=== PATIENT | female | born 1955 | race African-American/Black ===

== ENCOUNTER 2023-08-25 11:53 | Outpatient (AMB) | payer MEDICARE, MEDICAID, SELFPAY ==
--- NOTE | 2023-08-25 11:58 | HO.NEPHOV ---
HPI HPI Comments History of Present Illness Details 67 yr old woman with HTN Here for follow up No new issues PFSH Medical History (Updated 08/25/23 @ 12:14 by Tushar Tripathi MD) Rheumatoid aortitis High cholesterol Social History (Updated 08/25/23 @ 12:04 by Kimmie Cheney MA) Household Members: Children Alcohol intake: never Patient Tobacco Use Status: Never used Tobacco Vital Signs 08/25/23 11:59 Height 5 ft 4.3 in Weight 196 lb BMI 33.3 BP 138/98 H Blood Pressure Location Lt brachial Position Sitting Pulse 65 Pulse Source Pulse Oximeter Pulse Oximetry (%) 97 Oxygen Delivery Method Room Air Physical Exam Vital Signs: Last Vital Signs Pulse 65 08/25/23 11:59 BP 138/98 H 08/25/23 11:59 Pulse Ox 97 08/25/23 11:59 Oxygen Delivery Method Room Air 08/25/23 11:59 BMI result Body Mass Index 33.3 Const General: comfortable Nutritional Appearance: well nourished Orientation/consciousness: patient oriented x3 HEENT Head: No normal to inspection Mouth: moist mucous membranes Neck Neck: Yes supple and Yes no JVD Resp Auscultation: clear to auscultation bilaterally, no rales and rub present Cardio Jugular venous distension: no JVD Palpation: no palpable S3 and no palpable S4 Heart sounds: no rubs GI Palpation (GI): Soft to palpation and nontender Percussion: No Fluid wave present General: Yes no CVA tenderness Back/Spine/Pelvis Back: no CVA tenderness Skin General skin exam: no rashes or lesions noted Neuro General: patient oriented x3 Extrem General: Yes no pedal edema and No clubbing Assessment & Plan Assessment & Plan (1) HTN (hypertension): Code(s): I10 - Essential (primary) hypertension Plan BP well controlled Tolerating HCTZ Will follow Cr and K Discussed low salt diet and weight loss NO changes were made Orders: Orders Electrolytes 6 Months I10 - Essential (primary) hypertension Blood Urea Nitrogen 6 Months I10 - Essential (primary) hypertension Calcium 6 Months I10 - Essential (primary) hypertension Creatinine 6 Months I10 - Essential (primary) hypertension Coding Level of Care Code Est Pt Level 3 (59370) Diagnoses HTN (hypertension) I10 Results Reviewed Nephrology Results: No Data to Display
[2023-08-25 11:59] VITALS: BP 138/98; PULSE 65; O2SAT 97; BMI 33.3
== END 2023-08-25 12:15 | disposition home or self-care (01) ==
PROVIDERS: PCP Nurse Practitioner; Visit Provider Internal Medicine Hypertension Specialist
DX: I10 Essential (primary) hypertension (principal)
CPT/HCPCS: 99213

== ENCOUNTER → 2023-08-25 11:53 | Outpatient (BNVA) | payer MEDICARE, MEDICAID, SELFPAY | PROVIDERS: PCP Nurse Practitioner; Visit Provider Internal Medicine Hypertension Specialist | DX: I10 Essential (primary) hypertension (principal) | CPT/HCPCS: 99212 ==

== ENCOUNTER 2024-02-22 15:42 | Outpatient (REF) | payer MEDICARE, MEDICAID, SELFPAY ==
[2024-02-22 18:01] LABS: Anion Gap 13 (12-20); Blood Urea Nitrogen 24 mg/dL (9-16); Calcium 9.4 mg/dL (8.4-10.2); Carbon Dioxide 26 mmol/L (22-29); Chloride 105 mmol/L (96-108); Estimated Glomerular Filt Rate 34; Potassium 3.7 mmol/L (3.3-5.1); Sodium 140 mmol/L (135-145)
== END 2024-02-22 15:43 | disposition home or self-care (01) ==
LOC: HO.HKASLDS 15:42
PROVIDERS: Visit Provider Internal Medicine Hypertension Specialist
DX: I10 Essential (primary) hypertension (principal)
CPT/HCPCS: 36415; 80051; 82310; 82565; 84520

== ENCOUNTER 2024-02-23 11:38 | Outpatient (AMB) | payer MEDICARE, MEDICAID, SELFPAY ==
[2024-02-23 11:37] VITALS: BP 162/98; PULSE 62; O2SAT 98; BMI 31.1
--- NOTE | 2024-02-23 11:37 | HO.NEPHOV_ITS ---
Vital Signs 02/23/24 11:37 Height 5 ft 4.3 in Weight 183 lb BMI 31.1 BP 162/98 H Blood Pressure Location Rt brachial Position Sitting Pulse 62 Pulse Source Pulse Oximeter Pulse Oximetry (%) 98 Oxygen Delivery Method Room Air Intake Visit Reasons: 6 Months/ LVM Microsoft Access Developer Required: No Accompanied by: Self / Same As Patient Allergies ibuprofen Allergy (Mild, Verified 02/23/24 11:39) high blood pressure losartan Adverse Reaction (Mild, Verified 02/23/24 11:49) Muscle Pain lisinopril Adverse Reaction (Unknown, Unverified 02/23/24 11:56) Unknown Aspirin Allergy (Mild, Uncoded 08/25/23 12:02) Hives Medication List - Last Reconciled 02/23/24 by Tushar Tripathi MD hydrochlorothiazide 25 mg PO DAILY pravastatin 20 mg PO DAILY HPI Comments Details: 67 yr old woman with HTN Here for follow up She is taking HCTX 25 mg half a tab Reportedly home BP is around 139 mmHG systolic [facility] Medical History (Updated 08/25/23 @ 12:14 by Tushar Tripathi MD) Rheumatoid aortitis High cholesterol Social History Household Members: Children Alcohol intake: never Patient Tobacco Use Status: Never used Tobacco Physical Exam Vital Signs: Last Vital Signs Pulse 62 02/23/24 11:37 BP 162/98 H 02/23/24 11:37 Pulse Ox 98 02/23/24 11:37 Oxygen Delivery Method Room Air 02/23/24 11:37 BMI result Body Mass Index 31.1 Const General: comfortable; No acute distress Orientation/consciousness: patient oriented x3 Eyes General: appearance normal, both eyes and all related structures Visual Allan: normal visual allan by confrontation Neck Neck: Yes supple and Yes no JVD Resp Effort & Inspection: normal respiratory effort and respiratory effort not decreased Auscultation: rhonchi Cardio Palpation: no palpable S3 and no palpable S4 Heart sounds: no rubs GI Inspection: Yes normal to inspection Palpation (GI): Soft to palpation Percussion: Yes normal to percussion Auscultation: normal bowel sounds General: Yes no CVA tenderness Back/Spine/Pelvis Back: no CVA tenderness Skin General skin exam: no petechiae and no purpura Neuro General: patient oriented x3 and no focal motor deficits Extrem General: No clubbing and No edema Results Reviewed Nephrology Results: Sodium 140 mmol/L (135-145) 02/22/24 Potassium 3.7 mmol/L (3.3-5.1) 02/22/24 Chloride 105 mmol/L (96-108) 02/22/24 Carbon Dioxide 26 mmol/L (22-29) 02/22/24 BUN 24 mg/dL (9-16) H 02/22/24 Creatinine 1.51 mg/dL (0.5-1.4) H 02/22/24 Calcium 9.4 mg/dL (8.4-10.2) 02/22/24 Assessment & Plan Assessment & Plan (1) HTN (hypertension): Code(s): I10 - Essential (primary) hypertension Category: Medical Plan BP well controlled Tolerating HCTZ Will follow Cr and K Discussed low salt diet and weight loss NO changes were made Coding Level of Care Code Est Pt Level 3 (33640) Diagnoses HTN (hypertension) I10
== END 2024-02-23 12:02 | disposition home or self-care (01) ==
PROVIDERS: PCP Nurse Practitioner; Visit Provider Internal Medicine Hypertension Specialist
DX: I10 Essential (primary) hypertension (principal)
CPT/HCPCS: 99213

== ENCOUNTER → 2024-02-23 11:38 | Outpatient (BNVA) | payer MEDICARE, MEDICAID, SELFPAY | PROVIDERS: PCP Nurse Practitioner; Visit Provider Internal Medicine Hypertension Specialist | DX: I10 Essential (primary) hypertension (principal); Z79.899 Other long term (current) drug therapy | CPT/HCPCS: 99212 ==

== ENCOUNTER 2024-04-05 09:21 | Outpatient (AMB) | payer MEDICARE, MEDICAID, SELFPAY ==
[2024-04-05 09:27] VITALS: BP 142/90; PULSE 68; O2SAT 98; BMI 31.1
--- NOTE | 2024-04-05 09:27 | HO.NEPHOV_ITS ---
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: No Accompanied by: Self / Same As Patient Allergies ibuprofen Allergy (Mild, Verified 04/05/24 09:29) high blood pressure losartan Adverse Reaction (Mild, Verified 04/05/24 09:29) Muscle Pain lisinopril Adverse Reaction (Unknown, Verified 04/05/24 09:29) Unknown Aspirin Allergy (Mild, Uncoded 08/25/23 12:02) Hives Medication List - Last Reconciled 04/05/24 by Tushar Tripathi MD cholecalciferol (vitamin D3) 25 mcg PO DAILY hydrochlorothiazide 25 mg PO DAILY pravastatin 20 mg PO DAILY PRN HPI Comments Details: 67 yr old woman with HTN Here for follow up She is taking HCTX 25 mg half a tab Reportedly home BP is around 139 mmHG systolic 04/05/24 She stopped Aldactone No new issues [facility] Medical History (Updated 04/05/24 @ 09:44 by Tushar Tripathi MD) Rheumatoid aortitis High cholesterol Social History Household Members: Children Alcohol intake: never Patient Tobacco Use Status: Never used Tobacco Physical Exam Vital Signs: Last Vital Signs Pulse 68 04/05/24 09:27 BP 142/90 H 04/05/24 09:27 Pulse Ox 98 04/05/24 09:27 Oxygen Delivery Method Room Air 04/05/24 09:27 BMI result Body Mass Index 31.1 Const General: comfortable; No acute distress Orientation/consciousness: patient oriented x3 Eyes General: appearance normal, both eyes and all related structures Visual Allan: normal visual allan by confrontation Neck Neck: Yes supple and Yes no JVD Resp Effort & Inspection: normal respiratory effort and respiratory effort not decreased Auscultation: rhonchi Cardio Palpation: no palpable S3 and no palpable S4 Heart sounds: no rubs GI Inspection: Yes normal to inspection Palpation (GI): Soft to palpation Percussion: Yes normal to percussion Auscultation: normal bowel sounds General: Yes no CVA tenderness Back/Spine/Pelvis Back: no CVA tenderness Skin General skin exam: no petechiae and no purpura Neuro General: patient oriented x3 and no focal motor deficits Extrem General: No clubbing and No edema Results Reviewed Nephrology Results: 2 Sodium 140 mmol/L (135-145) 02/22/24 Potassium 3.7 mmol/L (3.3-5.1) 02/22/24 Chloride 105 mmol/L (96-108) 02/22/24 Carbon Dioxide 26 mmol/L (22-29) 02/22/24 BUN 24 mg/dL (9-16) H 02/22/24 Creatinine 1.51 mg/dL (0.5-1.4) H 02/22/24 Calcium 9.4 mg/dL (8.4-10.2) 02/22/24 Assessment & Plan Assessment & Plan (1) HTN (hypertension): Code(s): I10 - Essential (primary) hypertension Category: Medical Plan BP betterl controlled Tolerating HCTZ Will follow Cr and K Discussed low salt diet and weight loss NO changes were made Orders: Orders Complete Blood Count Auto Diff 6 Months I10 - Essential (primary) hypertension, N18.9 - Chronic kidney disease, unspecified Comprehensive Met. Panel 6 Months I10 - Essential (primary) hypertension, N18.9 - Chronic kidney disease, unspecified Total Protein Urine Random 6 Months I10 - Essential (primary) hypertension, N18.9 - Chronic kidney disease, unspecified Creatinine Urine 6 Months I10 - Essential (primary) hypertension, N18.9 - Chronic kidney disease, unspecified Medications: New hydrochlorothiazide 25 mg PO DAILY 90 tabs 2RF Coding Level of Care Code Est Pt Level 4 (79070) Diagnoses HTN (hypertension) I10
== END 2024-04-05 09:49 | disposition home or self-care (01) ==
PROVIDERS: PCP Nurse Practitioner; Visit Provider Internal Medicine Hypertension Specialist
DX: I10 Essential (primary) hypertension (principal)
CPT/HCPCS: 99214

== ENCOUNTER → 2024-04-05 09:21 | Outpatient (BNVA) | payer MEDICARE, MEDICAID, SELFPAY | PROVIDERS: PCP Nurse Practitioner; Visit Provider Internal Medicine Hypertension Specialist | DX: I12.9 Hypertensive chronic kidney disease with stage 1 through stage 4 chronic kidney disease, or unspecified chronic kidney disease (principal); N18.9 Chronic kidney disease, unspecified | CPT/HCPCS: 99212 ==

== ENCOUNTER 2024-06-21 23:59 | Outpatient (BNV) | payer MEDICARE, MEDICAID, SELFPAY | END 2024-06-22 23:59 | PROVIDERS: PCP Nurse Practitioner; Visit Provider Internal Medicine | DX: I21.4 Non-ST elevation (NSTEMI) myocardial infarction (principal) | CPT/HCPCS: 99223 ==

== ENCOUNTER 2024-11-28 19:27 | Emergency (ER) | payer MEDICARE, MEDICAID, SELFPAY ==
--- NOTE | ~2024-11-28 | CT_ITS ---
CLINICAL HISTORY: right facial numbness CT head without contrast Comparison: None Findings: No intra-axial mass, midline shift, hydrocephalus, or acute hemorrhage. Mild periventricular and subcortical white matter hypoattenuation likely chronic small-vessel ischemic changes. Intracranial atherosclerosis. There is no sinus or mastoid fluid. The orbits are within normal limits. There is no acute fracture. IMPRESSION: 1. No acute intracranial findings. This document has been electronically signed by: Caroline Mooney MD on 11/28/2024 21:37:16
--- NOTE | ~2024-11-28 | XR_ITS ---
CLINICAL HISTORY: chest pain, 1 view chest x-ray Comparison: None Findings: The lungs are clear. Heart size is normal. No acute fracture. IMPRESSION: 1. No acute findings. This document has been electronically signed by: Caroline Mooney MD on 11/28/2024 21:06:43
[2024-11-28 20:23] VITALS: BP 152/85; PULSE 58; RESP 16; TEMP 36.7; O2SAT 98; BMI 29.7
--- NOTE | 2024-11-28 20:30 | ECG_ITS ---
Test Reason : CHEST DISCOMFORT. RIGHT FACE NUMBNESS Blood Pressure : */* mmHG Vent. Rate : 55 BPM Atrial Rate : 55 BPM P-R Int : 204 ms QRS Dur : 90 ms QT Int : 414 ms P-R-T Axes : 23 -48 4 degrees QTcB Int : 396 ms Sinus bradycardia Left axis deviation Moderate voltage criteria for LVH, may be normal variant ( R in aVL , Adrian product ) Inferior infarct , age undetermined Anterior infarct , age undetermined Abnormal ECG No previous ECGs available Referred By: Shiv Martinez Electronically Signed By: BOGDAN SHAW MD
--- NOTE | 2024-11-28 20:30 | ED_ITS ---
HPI - General Adult General Chief complaint: General Medical Stated complaint: Neck pressure Time Seen by Provider: 11/28/24 21:54 History of Present Illness ED Provider: Brett SALAZAR narrative: The patient is a 69-year-old woman who has a history of coronary artery disease and chronic kidney disease. The patient had an NSTEMI approximately 6 months ago and was treated at [facility]. She was found to have triple-vessel disease. No stenting was done. Apparently was told that she requires open heart surgery but because she was anemic she was not a candidate. The patient is a Restoration and does not accept blood transfusions. The patient has been taking vitamin B12 and folate. She says that she subsequently told that stenting might be an appropriate intervention because of her blood counts and her inability to receive blood transfusions. The patient is currently awaiting a 2nd opinion with regard to interventions for her coronary disease. She gets her primary care and/or Cardiology care through [facility]. The patient says that yesterday and today she has not felt well. She says that yesterday she had intermittent episodes of brief right-sided chest discomfort. Today she also had right-sided neck discomfort and a sense of numbness on the right side of her neck and the right side of the back of her head. She also felt lightheaded. She came to the emergency room for evaluation. The patient says that when she had an NSTEMI 6 months ago she had a distinct sense of discomfort in her mid lower sternal area which is not what she has experienced over the last couple of days. Related Data Home Medications ?Medication ?Instructions ?Recorded ?Confirmed cholecalciferol (vitamin D3) 25 25 mcg PO DAILY 04/05/24 11/29/24 mcg (1,000 unit) capsule aspirin 81 mg tablet,delayed 81 mg PO DAILY 11/29/24 11/29/24 release atorvastatin 80 mg tablet 80 mg PO DAILY 11/29/24 11/29/24 isosorbide mononitrate 60 mg 60 mg PO QAM 11/29/24 11/29/24 tablet,extended release 24 hr metoprolol succinate 25 mg 25 mg PO DAILY 11/29/24 11/29/24 tablet,extended release 24 hr nifedipine 30 mg tablet,extended 30 mg PO DAILY 11/29/24 11/29/24 release 24 hr nitroglycerin 0.4 mg sublingual mg sublingual 11/29/24 11/29/24 tablet Allergies Allergy/AdvReac Type Severity Reaction Status Date / Time ibuprofen Allergy Mild high blood Verified 11/29/24 11:05 pressure losartan AdvReac Mild Muscle Pain Verified 11/29/24 11:05 lisinopril AdvReac Unknown Unknown Verified 11/29/24 11:05 Aspirin Allergy Mild Hives Uncoded 11/29/24 11:05 Review of Systems 2 Review of Systems: Yes all other systems are reviewed and are negative [facility] Past Medical History Medical History Rheumatoid aortitis High cholesterol Social History Social History Household Members: Children Alcohol intake: never Patient Tobacco Use Status: Never used Tobacco Physical Exam ED Vital Signs: Vital Signs - 24 hr 11/28/24 20:23 11/28/24 23:50 11/28/24 23:52 Temperature 98.1 F 98.2 F 98.2 F Pulse Rate 58 60 60 Respiratory Rate 16 16 16 Blood Pressure 152/85 H 131/87 131/87 Pulse Oximetry 98 98 98 Oxygen Delivery Method Room Air Room Air Room Air BMI result Body Mass Index 29.7 Const Other: The patient is awake, alert, pleasant, cooperative. She does not appear in any distress. She is very pleasant. HENMT Other: Face is symmetrical, mucous membranes moist. Eyes General: appearance normal, both eyes and all related structures Eyelids: Yes eyelids normal Conjunctivae: conjunctivae normal Sclerae: sclerae normal Pupils: Equal, round and reactive pupils present EOM: EOMs intact bilaterally Neck Other: No neck tenderness. She reports some decreased sensation in the right side of her neck. Resp Effort & Inspection: normal respiratory effort Auscultation: clear to auscultation bilaterally Cardio Rate: regular rate Rhythm: regular rhythm Heart sounds: S1 normal heart sound present and S2 normal heart sound present GI Other: Abdomen is soft and nontender Skin Other: Skin is dry and unremarkable Neuro Other: The patient is awake and alert with a normal mental status. Cranial nerves 2-12 seem intact. She moves her extremities normally and appropriately. Strength is 5/5. No pronator drift. Finger-nose is normal. Gait is steady. She seems neurologically intact. Cranial nerves: Yes Equal, round and reactive pupils present Extrem Other: No peripheral edema, no calf swelling or tenderness. Course Course Course Narrative: RME: 69 year female presents to ED for chest pain, lightheadedness, right facial numbness and tingling with slight right-sided neck pain. Patient denies any slurred speech, facial droop, nausea, vomiting, paralysis of extremities. NIH score is 0. One tympanic patient is having symptoms since yesterday. EKG labs chest x-ray ordered. Medical Decision Making Medical Decision Making MDM Narrative: The patient is a 69-year-old woman who presents with a complaint of lightheadedness and some chest discomfort today. She also has had some symptoms of numbness in the right side of her neck in the back of her head. Clinically the patient looks quite well. She has a history of coronary disease that was elucidated by a stent following an NSTEMI last fall. She had triple- vessel disease but, perhaps because of her anemia and her Restoration status, she was felt to be a risky surgical candidate. Ultimately stenting was offered but she was concerned because she had initially been made to believe that her disease pattern was an indication for surgery rather than stenting. She is therefore awaiting a 2nd opinion from a new community arts centre manager. Today she presents with some atypical chest symptoms and some unusual complaints of numbness. Clinically she looks quite well. Her EKG is unremarkable. Her troponins are flat. I do not think her description of her symptoms is highly suggestive of an acute stroke. I think she may be reassured and discharged to follow up with the regular providers. Lab Data 11/28/24 21:00 11/28/24 21:00 Labs: Lab Results 11/28/24 11/28/24 Range/Units 21:00 22:35 WBC 5.1 (4.8-10.8) X10*3/uL RBC 4.24 (4.20-5.50) X10*6/uL Hgb 11.9 L (12.0-16.0) g/dl Hct 35.9 L (37.0-47.0) % MCV 84.7 (80.0-98.0) fL MCH 28.1 (27.0-33.0) pg MCHC 33.1 (31.0-35.0) g/dl RDW 14.9 (11.0-16.0) % Plt Count 210 (160-400) X10*3/uL MPV 9.9 (9.4-12.3) fL Immature Gran % (Auto) 0.2 (0.0-0.4) % Neut % (Auto) 50.6 (45-73) % Lymph % (Auto) 40.6 H (20-40) % Bell % (Auto) 6.8 (2-11) % Eos % (Auto) 1.6 (0-4) % Baso % (Auto) 0.2 (0-2) % Lymph # (Auto) 2.1 (1.2-4.9) X10*3/uL Bell # (Auto) 0.4 (0.1-1.2) X10*3/uL Eos # (Auto) 0.1 (0.0-0.4) X10*3/uL Baso # (Auto) 0.0 (0.0-0.2) X10*3/uL Abs Immat Gran (auto) 0.01 (0.00-0.03) X10*3/uL Absolute Neuts (auto) 2.6 (2.0-8.3) x10*3/uL Absolute Nucleated RBC 0.000 (0.0-0.012) X10*3/uL Nucleated RBC % (auto) 0.0 (0.0-0.2) /100WBC PT 12.4 (10.9-12.4) SEC INR 1.1 (0.9-1.1) APTT 32.0 (26.0-36.8) SEC Sodium 143 (135-145) mmol/L Potassium 4.3 (3.3-5.1) mmol/L Chloride 109 H (96-108) mmol/L Carbon Dioxide 25 (22-29) mmol/L Anion Gap 13 (12-20) BUN 20 H (9-16) mg/dL Creatinine 1.41 H (0.5-1.4) mg/dL Estim Creat Clear Calc 39.2 Estimated GFR 37 Random Glucose 87 (60-115) mg/dL Calcium 9.3 (8.4-10.2) mg/dL Total Bilirubin 0.2 (0.0-1.0) mg/dL AST 26 (5-31) U/L ALT 30 (0-31) U/L Alkaline Phosphatase 119 H (39-117) U/L Troponin I High Sens 5.6 6.0 (<3.5-17.0) ng/L Total Protein 7.4 (6.5-8.0) g/dL Albumin 4.0 (3.5-5.0) g/dL Discharge Plan Discharge Clinical Impression: Chest pain, Numbness Patient Disposition: Home, Self-Care Additional Instructions: Your testing in the emergency room today seems reasonably reassuring. Please keep your appointment with your lockstitch lining maker tomorrow. I would also recommend contacting your primary care doctor for a prompt follow up appointment to discuss these symptoms as well. Continue your current medications. I recommend that for the next several days you rest and take it easy as much as you are able to. Return to the emergency room if significantly worse. Prescriptions: No Action cholecalciferol (vitamin D3) 25 mcg (1,000 unit) capsule 25 mcg PO DAILY aspirin 81 mg tablet,delayed release (DR/EC) 81 mg PO DAILY nifedipine 30 mg tablet extended release 24hr 30 mg PO DAILY atorvastatin 80 mg tablet 80 mg PO DAILY isosorbide mononitrate 60 mg tablet extended release 24 hr 60 mg PO QAM metoprolol succinate 25 mg tablet extended release 24 hr 25 mg PO DAILY nitroglycerin 0.4 mg tablet, sublingual sublingual Referrals: Singh Brown NP [Primary Care Provider] - (chest pains, diffuse bodily numbness) Tushar Tripathi MD [Physician] - Interventions: ED Discharge Assessment Last Done: 11/28/24 23:52 Discharge Date/Time: 11/29/24 01:40 Print Language: Argentine
[2024-11-28 21:05] LABS: MANUAL DIFF FLAG NO
[2024-11-28 21:07] LABS: Basophils Percent Auto 0.2 % (0-2); Eosinophils Absolute Auto 0.1 X10*3/uL (0.0-0.4); Eosinophils Percent Auto 1.6 % (0-4); Hematocrit 35.9 % (37.0-47.0); Hemoglobin 11.9 g/dl (12.0-16.0); Imm Gran Abs Auto 0.01 X10*3/uL (0.00-0.03); Imm Gran Pct Auto 0.2 % (0.0-0.4); Lymphocytes Absolute Auto 2.1 X10*3/uL (1.2-4.9); Lymphocytes Percent Auto 40.6 % (20-40); Mean Corpuscular HGB Conc 33.1 g/dl (31.0-35.0); Mean Corpuscular Hemoglobin 28.1 pg (27.0-33.0); Mean Corpuscular Volume 84.7 fL (80.0-98.0); Mean Platelet Volume 9.9 fL (9.4-12.3); Monocytes Absolute Auto 0.4 X10*3/uL (0.1-1.2); Monocytes Percent Auto 6.8 % (2-11); Neutrophils Absolute Auto 2.6 x10*3/uL (2.0-8.3); Neutrophils Percent Auto 50.6 % (45-73); Platelet Count 210 X10*3/uL (160-400); Red Blood Count 4.24 X10*6/uL (4.20-5.50); Red Cell Distribution Width 14.9 % (11.0-16.0); White Blood Count 5.1 X10*3/uL (4.8-10.8)
[2024-11-28 21:16] LABS: INTERNATIONAL NORM RATIO 1.1 (0.9-1.1); Prothrombin Time 12.4 SEC (10.9-12.4)
--- OUTSIDE RECORDS SUMMARY | 2024-11-28 21:21 | XMS_ITS | Encounter Summary ---
Author Organization [facility] Address [address] [facility] [address] [place] [address] Phone Care Team Providers Care Plate Fitter Name Role Phone Singh Brown NP Primary Care Provider [phone] Encounter Details Date Type Department Care Team (Late st Contact Info) Description 10/01/2022 Office Communication [facility] [address] [facility] [address] [place] [address] Tk Hernandez MD Social History Tobacco Use Types Packs/Day Years Used Date Smoking Tobacco: Former Cigarettes Smokeless Tobacco: Never Alcohol Use Standard Drinks/Week Comments Not Currently 0 (1 standard drink = 0.6 oz pur e alcohol) Comments Unknown Sex and Gender Information Value Date Recorded Sex Assigned at Not on file Legal Sex Female 10:59 AM EDT Gender Identity Not on file Sexual Orientation Not on file documented as of this encounter Plan of Treatment Not on file documented as of this encounter Visit Diagnoses Not on filedocumented in this encounter Care Teams Plate Fitter Relationship Specialty Start Date End Date Singh Brown NP [address] [place] [address] PCP - General Nurse Practitioner 03/12/23 documented as of this encounter
--- OUTSIDE RECORDS SUMMARY | 2024-11-28 21:21 | XMS_ITS | Clinical Summary ---
Author Organization [facility] Address [address] [place] [address] Care Team Providers Care Review Assistant Name Role Phone Dexter Burt Primary Care Provider [phone] Source Comments PLEASE NOTE, if this patient is a minor, it may be UNLAWFUL to discuss sensitive information that is contained in these records (such as FAMILY PLANNING, MENTAL HEALTH or SUBSTANCE ABUSE) with the minor patient's parent or other person without the patient's specific authorization.[facility] Allergies Active Allergy Reactions Criticality Noted Date Comments Amlodipine 10/08/2022 Other reaction(s): edema Cyclobenzaprine 10/08/2022 Other reaction(s): Unavailable Ibuprofen 06/22/2022 Nsaids (Non-Steroidal Anti-Inflammatory Drug) 06/22/2022 Medications lisinopriL 20 mg tablet Take 20 mg by mouth 10/07/2022 Active losartan (COZAAR) 50 mg tablet 10/01/2022 Active coenzyme Q10 10 mg capsule Take by mouth Active Active Problems Problem Noted Date Diagnosed Date Stage 3a chronic kidney disease ([facility]) 2022 Family history of coronary artery disease 2022 Spondylosis of cervical spine 10/08/2022 Vitamin B deficiency 10/08/2022 Vitamin D deficiency 10/08/2022 History of cerebrovascular accident 08/05/2012 Overview (10/08/2022): Int capsule on MRI, and ischemic vasc dz changes. Evaluated 2012 Dr Horne, could cause some imbalance but doesn't correspond to facial numbness that patient complains of, which she feels started after ?dental infection Mixed hyperlipidemia 04/07/2010 Overview (10/08/2022): Lipitor caused muscle weakness, as did other statins Fibromyalgia 03/21/2010 Overview (10/08/2022): [facility] (Dr [place]) Primary hypertension 03/21/2010 Resolved Problems Problem Noted Date Diagnosed Date Resolved Date Allergic rhinitis 10/08/2022 10/08/2022 Immunizations Immunization Administration Dates Next Due INFLUENZA, SEASONAL, INJECTABLE 08/28/2015 TDAP 03/21/2010,03/21/2010 Td(adult),2 Lf tetanus toxoid,preservative free 09/21/2019 Social History Tobacco Use Types Packs/Day Years Used Date Smoking Tobacco: Never Assessed Social Connections Answer Date Recorded Social Connections and Isolation 0 09/24/2022 Financial Resource Strain Answer Date R ecorded Financial Resource Strain 0 2022 Stress Answer Date Recorded Stress 0 09/24/2022 Physical Activity Answer Date Recorded Physical Activity 0 09/24/2022 Food Insecurity Answer Date Recorded Food 0 09/24/2022 Transportation Needs Answer Date Record ed Transportation 0 09/24/2022 Housing Stability Answer Date Recorded Housing 0 09/24/2022 Safety and Environment Answer Date Antoine rded Safety 0 09/24/2022 Utilities Answer Date Recorded Utilities 0 09/24/2022 Employment Answer Date Recorded Employment 0 09/24/2022 Comments Unknown Sex and Gender Information Value Date Recorded Sex Assigned at Not on file Legal Sex Female 12:34 PM PDT Gender Identity Not on file Sexual Orientation Not on file Plan of Treatment Health Maintenance Due Date Last Done Comments Diabetes Screening 1955 Hepatitis C Screening 1955 Lipid Screening 1955 Tobacco Screening 1955 Breast Cancer Screening (Mammogram) 1997 CT Colonography 2002 Colonoscopy 2002 Colorectal Cancer Screening 2002 FIT/gFOBT 2002 Fecal DNA 2002 Flexible Sigmoidoscopy 2002 Imm-Pneumococcal 65+ (1 of 1 - PCV) 11/13/2007 Imm-Zoster, Recombinant (1 of 2) 11/13/2007 Bone Density Screening 2022 Falls Prevention 2022 [id number] ( season) 2024 Imm-Influenza (#1) 2024 08/28/2015 Alcohol and Drug Screen 08/16/2024 Depression Annual Screen 08/16/2024 Imm-DTaP/Tdap/Td (4 - Td or Tdap) 09/21/2029 09/21/2019, 03/21/2010, 03/21/2010 [place] Care Teams Review Assistant Relationship Specialty Start Date End Date Dexter Burt PA [address] [place] [address] PCP - General FAMILY MEDICINEBETI 05/06/22
--- OUTSIDE RECORDS SUMMARY | 2024-11-28 21:21 | XMS_ITS | Patient Health Record ---
Author Organization [facility] Address [address] [place] [address] Care Team Providers Care House Officer Name Role Phone Singh Brown CNP Primary Care Provider UnavailELIANE Grant Unavailable [phone] Allergies Allergen (clinical drug ingredient) Drug/Non Drug Allergy documented on EMR Reaction Allergy Type Onset Date Status amlodipine Amlodipine edema Drug Allergy Activ e cyclobenzaprine Cyclobenzaprine Unknown Drug Allergy Active Non-steroidal anti-inflammatory agent (FN) NSAIDs hypertension Drug Allergy Active Results Component Value Reference Range Notes TSH reflex to [id number] Reviewed date:09/22/2024 09:21:56 AM Interpretation: Performing Lab:[facility], [employer], [facility], Phone - [phone], Director - Domi Notes/Report: TSH 2.350 0.450-4.500 uIU/mL DONTA by IFA Rfx Titer/Pattern -[id number] Reviewed date:09/22/2024 09:21:39 AM Interpretation: Performing Lab:[facility], [employer], [email or web address], Phone - [phone], Director - Domi Notes/Report: DONTA by IFA Rfx Titer/Pattern Negative Negative <1:80 Borderline 1:80 Positive >1:80 ICAP nomenclature: AC-0 For more information about Hep-2 cell patterns use ANApatterns.org, the official website for the International Consensus on Antinuclear Antibody (DONTA) Patterns (ICAP). Anti-CCP Ab, IgG/IgA-[id number] Reviewed date:09/22/2024 09:21:24 AM Interpretation: Performing Lab:[facility], [facility], Phone - [phone], Director - Luz Marinadry Notes/Report: Anti-CCP Ab, IgG/IgA 4 0-19 units Negative <20 Weak positive 20 - 39 Moderate positive 40 - 59 Strong positive >59 Lyme Disease Serology w/Refl ex-[id number] Reviewed date:09/22/2024 09:22:05 AM Interpretation: Performing Lab:[facility], Phone - [phone], Director - Domi Notes/Report: Lyme Total Antibody CHAY Negative Negative Lyme antibodies not detected. Reflex testing is not indicated. No laboratory evidence of infection with B. burgdorferi (Lyme disease). Negative results may occur in patients recently infected (less than or equal to 14 days) with B. burgdorferi. If recent infection is suspected, repeat testing on a new sample collected in 7 to 14 days is recommended. Thyroid Peroxidase (TPO) Ab- [id number] Reviewed date:09/22/2024 09:21:50 AM Interpretation: Performing Lab:[facility] [address], Phone - [phone], Director - Domi Notes/Report: Thyroid Peroxidase (TPO) Ab 15 0-34 IU/mL Rheumatoid Factor (RF)-43775 2 Reviewed date:09/22/2024 09:21:45 AM Interpretation: Performing Lab:[facility] [address], Phone - [phone], Director Minh Duron Notes/Report: Rheumatoid Factor (RF) <10.0 <14.0 IU/mL Uric Acid-[id number] Reviewed date:10/02/2024 10:20:08 AM Interpretation: Performing Lab:[facility], Phone - [phone], Director - Domi Notes/Report: Uric Acid 7.7 3.0-7.2 mg/dL Therapeutic ta rget for gout patients: <6.0 ESR Reviewed date:09/20/2024 07:37:20 AM Interpretation:26 Performing Lab: Notes/Report: 26 Sedimentation Rate-Westergre n-[id number] Reviewed date:09/22/2024 09:21:12 AM Interpretation: Performing Lab:[facility], [address] [place] [address], Phone - [phone], Director - Domi Notes/Report: Sedimentation Rate-Westergren 26 0-40 mm/hr Reason For Referral No Information Medications Medication SIG (Take, Route, Frequency, Duration) Notes Start Date End Date Status Ferrous Sulfate 324 MG 1 tablet Orally Three times a Week Active Cyanocobalamin 500 MCG 1 tablet Orally O nce a day Active Atorvastatin Calcium 80 MG 1 tablet Orally Once a day every other day Active Colchicine 0.6 MG 1 tablet Orally once a day for 30 days 09/29/2024 Active Vitamin D3 25 MCG (1000 UT) 1 capsule Orally Once a day Active Aspirin 81 81 MG 1 tablet Orally Once a day Active Vitamin C 500 MG 1 tablet Orally Once a day Active Pantoprazole Sodium 40 MG 1 tablet 1/2 to 1 hour before morning meal Orally Once a day Active Nitrostat 0.4 MG 1 tablet under the tongue and allow to dissolve as needed. Take every 5 minutes up to 3 times if chest pain persists Sublingual Three times a day Active NIFEdipine ER 30 MG 1 tablet on an empty stomach Orally Once a day Active Metoprolol Succinate 25 MG 1 capsule Orally Once a day Active Isosorbide Mononitrate ER 30 MG 1 tablet in the morning Orally Once a day Active Folic Acid 1 MG 1 tablet Orally Once a day Active Problems Problem Type SNOMED Code ICD Code Onset Dates Problem Status W/U Status Risk Notes Problem 249505706 Primary osteoarthritis, left ankle and foot (M19.072) Active confirmed Problem 1467664 Inflammatory arthritis (M19.90) Active confirmed Vital Signs Heart Rate 65 /min 09/13/2024 Temperature 97.1 degrees Fahrenheit 09/13/2024 Respiratory Rate 16 /min 09/13/2024 Height 5ft 3in in 09/13/2024 Weight 189.0 lbs 09/13/2024 BMI 33.48 kg/m2 09/13/2024 Encounters Encounter Location Date Provider Diagnosis [facility] [address] [address] 09/13/2024 ELIANE VAN Inflammatory arthritis M19.90 ; Primary osteoarthritis, left ankle and foot M19.072 and Pain in left foot M79.672 [facility] [address] [address] 09/29/2024 ELIANE VAN [facility] [address] [address] 11/21/2024 ELIANE VAN Assessments Encounter Date Diagnosis (ICD Code) Assessment Notes Treatment Notes Treatment Clinical Notes Section Notes 09/13/2024 Primary osteoarthritis, left ankle and foot (ICD-10 - M19.072) 09/13/2024 Inflammatory arthritis (ICD-10 - M19.90) This is an outpatient visit for evaluation and management of a new patient, which required appropriate review of pertinent medical history, review of any previous imaging, review of all previous records, and examination and decision-making. Time was 60 minutes spent in review of all these facets including face to face discussion with the patient regarding my findings and in discussion of a current and future treatment plan. I discussed with the patient that the random pain and swelling in her left foot seems to be caused by an inflammatory arthritis. We discussed there seemed to be no trigger, and it was not caused by an injury or overuse. I reviewed the results of her x-ray findings and discussed that she has evidence of an inflammatory arthritis, especially in the left forefoot, combined with increased calcifications along tendon attachments. Inflammatory arthritis refers to a group of autoimmune diseases that cause joint inflammation, pain, swelling, and stiffness. Unlike osteoarthritis, which results from wear and tear, inflammatory arthritis is caused by the immune system mistakenly attacking the joints. It can affect multiple joints, including those in the feet, hands, and spine. She was diagnosed with fibromyalgia about 15 years ago and denies any repeat testing since that time. She also has a strong family history of autoimmune conditions, therefore I would like to perform some blood tests to check for different inflammatory arthritis. We discussed some possible underlying causes can include: rheumatoid arthritis, lupus, lyme disease, gout, CPPD, psoriatic arthritis, and ankylosing spondylitis. The patient is in agreement with this plan, and lab work was sent to [facility] per the patient's request. I will contact the patient once I receive the results. We discussed symptoms of inflammatory arthritis: joint Pain and Swelling (worse in the morning or after rest), Stiffness and Reduced Range of Motion, Redness and Warmth around affected joints, and Joint Deformities (in progressive cases like RA). We discussed without knowing the underlying reason, most treatment would be symptom management. We discussed treatment options can include: Corticosteroids: Fast-acting inflammation control, both oral and injections, Disease-Modifyin g Anti-Rheumatic Drugs (DMARDs): Slow disease progression (e.g., methotrexate, sulfasalazine), Biologic Therapies: Target specific immune responses (e.g., TNF inhibitors, IL-17 blockers), Uric Acid-Lowering Drugs (for Gout): Reduce flare-ups. The patient would like to hold off on trying any treatment options until we receive the results of the blood work. 09/13/2024 Pain in left foot (ICD-10 - M79.672) Plan Of Treatment Pending Test Test Name Order Date X ray : Foot, left 3v 09/13/2024 Insurance Providers Payer Name Payer Address Payer Phone Subscriber Number Group Number Insured Name Patient Relationship to Insured Coverage Start Date Coverage End Date [facility] [address] [address] [place] [address] [phone] [id number] Ni Lopez Self - patient is the insured Medical (General) History Medical History History ICD Code allergic rhinitis cervical spine degeneration- noted from [facility] ED [facility] 08/2015; mild C4-C5 ant subluxation chronic kidney disease stage 3 essential hypertension fibromyalgia cerebrovascular accident hyperlipidemia lower back pain obese class 1 pancreatic cyst prediabetes- resolved 05/2016 vitamin B12 deficiency vitamin D deficiency osteoarthritis + COVID 2024 not COVID vaccinated Surgical History Surgery Date(Month/Year) Stillbirth 1985 Hospitalization History Reason Date(Month/Year) heart attack 06/20/2024 vaginal delivery (girl) 1994 vaginal delivery (girl) 1987 Stillbirth (boy) 1984 vaginal delivery (girl) 1979 vaginal delivery (girl) 1977 vaginal delivery (girl) 1975 vaginal delivery (boy) 1974
--- OUTSIDE RECORDS SUMMARY | 2024-11-28 21:21 | XMS_ITS ---
Author Name [facility] Organization Unknown Encounters Encounter Type Encounter Reason Primary Diagnosis Location Date [facility] 11/17/2024 [facility] 11/17/2024 Care Team Organization Name Specialty Phone Email Start Date End [facility] 12/2024
--- OUTSIDE RECORDS SUMMARY | 2024-11-28 21:22 | XMS_ITS | Clinical Summary ---
Author Organization [facility] Address [address] [place] [address] Care Team Providers Care Lab Clerk Name Role Phone Josué Richards MD Primary Care Provider [phone] Allergies Active Allergy Reactions Criticality Noted Date Comments Asa-Calcium Euwv-Cut-Lgccufcx 2011 Throat closing Atorvastatin Calcium 04/30/2010 myalgias Corticosteroids (Glucocorticoids) 12/26/2014 Hypertension Cortisone 07/13/2022 Diphenhydramine Hcl Swelling 11/05/2020 Nsaids (Non-Steroidal Anti-Inflammatory Drug) 07/13/2022 Nut - Unspecified Itching 11/05/2020 Other Reaction(s): Hives/Urticaria Peanut 07/13/2022 Medications aspirin 81 mg EC tablet 1 tablet (81 mg total) 1 (one) time each day at the same time. Active cholecalciferol (VITAMIN D-3) 25 mcg (1,000 unit) capsule Take 1 capsule (1,000 Units total) by mouth 1 (one) time each day. Active ferrous sulfate 324 mg (65 mg elemental iron) EC tablet 1 tablet (324 mg total). Active isosorbide mononitrate (IMDUR) 30 mg 24 hr tablet 1 tablet (30 mg total) 1 (one) time each day at the same time. Active metoprolol succinate (TOPROL-XL) 25 mg 24 hr tablet Take 1 tablet (25 mg total) by mouth 1 (one) time each day. 08/28/2024 Active NIFEdipine (ADALAT CC) 30 mg 24 hr tablet 1 (one) time each day at the same time. Active pantoprazole (PROTONIX) 40 mg EC tablet 1 (one) time each day at the same time. Active Active Problems Problem Noted Date Diagnosed Date Refusal of blood product 09/19/2024 Other iron deficiency anemias 09/19/2024 Chronic nasal congestion 06/17/2021 Overview (09/18/2024): AIANE Stress 08/18/2012 CKD stage 3a, GFR 45-59 ml/min ([facility] V24, [facility] /[facility] V28) 04/07/2010 Hyperlipidemia 04/07/2010 Overview (09/18/2024): Lipitor caused muscle weakness, as did other statins Fibromyalgia 03/21/2010 Overview (09/18/2024): [facility] (Dr [place]) Hypertension 03/21/2010 Obesity (BMI 30.0-34.9) 03/21/2010 Encounters Date Type Department Care Team Description 10/02/2024 3:00 PM EST - 10/02/2024 11:59 PM EST Hospital Encounter [address] [address] Gage Haro MD Refusal of blood product (Primary Dx); Other iron deficiency anemias; Anemia due to stage 3a chronic kidney disease ([facility]/HCC V24, [facility] V28); CKD stage 3a, GFR 45-59 ml/min ([facility]/HCC V24, [facility] V28) Discharge Disposition: Home or Self Care 09/26/2024 2:28 PM EST - 09/26/2024 11:59 PM EST Hospital Encounter [address] [address] Gage Haro MD Other iron deficiency anemias (Primary Dx); Anemia due to stage 3a chronic kidney disease ([facility]/HCC V24, [facility]/HCC V28); CKD stage 3a, GFR 45-59 ml/min (CMS/HCC V24, [facility]/HCC V28); Refusal of blood product Discharge Disposition: Home or Self Care 09/19/2024 1:00 PM EST Office Visit [facility] Hematology Oncology [address] [place] [address] Gage Haro MD Other iron deficiency anemia (Primary Dx); Low hemoglobin and low hematocrit; CKD stage 3a, GFR 45-59 ml/min ([facility] V24, [facility] V28); Anemia due to stage 3a chronic kidney disease ([facility] V24, [facility] V28); Refusal of blood product; 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 ([facility] V24); ST elevation myocardial infarction involving left anterior descending (LAD) coronary artery ([facility] V24, [facility] V28); Other iron deficiency anemias from Last 3 Months Immunizations Name Administration Dates Next Due Td Tetanus diptheria (Tdvax) 7yo and older 09/21 Tdap Tetanus diptheria acell ular pertussis (Boostrix; Adacel) 7yo and older 03/21/2010 Surgical History Surgery Date Site/Laterality Comments SECTION x1 PROCEDURE: CA DELIVERY ONLY Medical History Medical History Date Comments Hypertension DX:Hypertension Hyperlipidemia DX:Hyperlipidemi a CKD (chronic kidney disease) stage 3, GFR 30-59 ml/min ([facility] V24, [facility] V28) DX:CKD (chroni c kidney disease) stage 3, GFR 30-59 ml/min ([facility]) Fibromyalgia DX:Fibromyalgia Anxiety DX:Anxiety Allergic rhinitis DX:Allergic rh initis Cervical spine degeneration DX:C ervical spine degeneration Class 1 obesity DX:Class 1 obesi ty Prediabetes DX:Prediabetes Vitamin B12 deficiency DX:Vitami n B12 deficiency Vitamin D deficiency DX:Vitamin D deficiency Family History Medical History Relation Name Comments Other: hypoaldosteronism Daughter 1 Hypertension Daughter 2 Hypertension Daughter 3 Other: lupus Daughter 4 Other: fibromyalgia Daughter 5 Asthma Father Hypertension Mother CAD, lupus Other: kidney disease Other niece on HD Diabetes Neg Hx Other cancer Neg Hx Relation Name Status Comments Brother 1 Alive Asthma Brother 2 Alive Kidney disease Brother 3 (Age 45) Schizophre ling, Obesity Daughter 1 Alive Daughter 2 Daughter 3 Daughter 4 Daughter 5 Daughter 6 Alive Daughter 7 Alive Daughter 8 Alive Daughter 9 Alive Father (Age 67) Alcohol, e mphysema Mother Alive Other Son Alive Bipolar disorde r Social History Tobacco Use Types Packs/Day Years Used Date Smoking Tobacco: Former Cigarettes Smokeless Tobacco: Never Tobacco Cessation:Counseling Given: Not Answered Comments: Social smoker many years ago Alcohol Use Standard Drinks/Week Comments No 0 (1 standard drink = 0.6 oz pur e alcohol) Comments Unknown Sex and Gender Information Value Date Recorded Sex Assigned at Female 09/15/2024 9:24 AM EST Legal Sex Female 11:08 AM EDT Gender Identity Female 09/15/2024 9:24 AM EST Sexual Orientation Choose not to disclose 2024 2:27 PM EST Obstetrics History Last Filed Vital Signs Vital Sign Reading Time Taken Comments Blood Pressure 134/93 10/02/2024 3:40 PM EST Pulse 64 10/02/2024 3:40 PM EST Temperature 36.6 ??C (97.8 ??F) 10/02/2024 3:40 PM ES T Respiratory Rate - - Oxygen Saturation 100% 10/02/2024 3:40 PM EST Inhaled Oxygen Concentration - - Weight 84.5 kg (186 lb 4.6 oz) 09/26/2024 2:41 P M EST Height 160 cm (5' 3 ) 09/19/2024 1:19 PM EST Body Mass Index 33 09/19/2024 1:19 PM EST Plan of Treatment Health Maintenance Due Date Last Done Comments Breast Cancer Screening 1955 COVID-19 Vaccine (#1) 1962 Pneumococcal Vaccine: 50+ Years (1 of 2 - PCV) 1976 Zoster Vaccines (1 of 2) 11/13/2007 RSV Immunization Adult Patients (1 - Risk 60-74 years 1-dose series) 2017 Depression Screening 01/14/2020 Medicare Annual Wellness Visit 01/14/2020 Osteoporosis Screening (Bone Density Screening) 01/14/2020 Social Influencers of Health Screening 01/14/2020 Hypertension/CHF/CAD Annual BMP Blood Test 09/15/2024 07/07/2021 Influenza Vaccine (Season Ended) 2025 08/28/2015 Falls Risk Assessment 09/26/2025 09/26/2024 Cholesterol Screening (Lipid Panel) 07/07/2026 07/07/2021 Colorectal Cancer Screening: FIT-DNA (Cologuard) 11/11/2026 2023, 2023 DTaP,Tdap,and Td Vaccines (3 - Td or Tdap) 09/21/2029 09/21/2019, 03/21/2010 Colorectal Cancer Screening: Colonoscopy Discontinued 09/21/2008 Hepatitis C Screening Completed 11/23/2013 HIB Vaccines Aged Out No longer eligi ble based on patient's age to complete this topic HPV Vaccines Aged Out No longer eligi ble based on patient's age to complete this topic Hepatitis A Vaccines Aged Out No long er eligible based on patient's age to complete this topic Hepatitis B Vaccines Aged Out No long er eligible based on patient's age to complete this topic IPV Vaccines Aged Out No longer eligi ble based on patient's age to complete this topic MMR Vaccines Aged Out No longer eligi ble based on patient's age to complete this topic Meningococcal ACWY Vaccine Aged Out N o longer eligible based on patient's age to complete this topic Meningococcal B Vaccine Aged Out No l onger eligible based on patient's age to complete this topic RSV Immunization Patients Under 20 months Aged Out No longer eligible based on patient's age to complete this topic Varicella Vaccines Aged Out No longer eligible based on patient's age to complete this topic Procedures Procedure Name Priority Date/Time Associated Diagnosis Comments CBC WITH AUTO DIFFERENTIAL Routine 09/15/2024 10:40 AM EST Other iron deficiency anemia VITAMIN B12 AND FOLATE Routine 09/15/2024 10:40 AM EST Other iron deficiency anemia IRON AND TIBC Routine 09/15/2024 10:40 AM EST Other iron deficiency anemia FERRITIN Routine 09/15/2024 10:40 AM EST Other iron deficiency anemia CBC AND DIFFERENTIAL Routine 09/15/2024 10:40 AM EST Other iron deficiency anemia ANNUAL BMP BLOOD TEST Routine 07/07/2021 LIPID PANEL Routine 07/07/2021 HEPATITIS C SCREENING Routine 11/23/2013 COLONOSCOPY Routine 09/21/2008 from Last 3 Months or Most Recently Relevant to Health Maintenance Results * (ABNORMAL) Vitamin B12 and folate (09/15/2024 10:40 AM EST) [facility] Vitamin B-12 1,029(H) 250 - 900 pcg/mL LAB CHEMISTRY METHOD 09/15/2024 1:11 PM EST [facility] Folate 16.4 2.8 - 17.0 ng/ml LAB CHEMISTRY METHOD 09/15/2024 1:11 PM EST [facility] Blood Venous blood specimen / Unknown Venipuncture / Unknown 09/15/2024 10:40 AM EST 09/15/2024 11:17 AM EST Subramflower Perez MD LAB BLOOD ORDERABLE S Final Result [facility] [address] [place] [address], [place] [phone] * (ABNORMAL) CBC auto differential (09/15/2024 10:40 AM EST) [facility] WBC 5.9 4.8 - 10.8 K/mcL LAB HEMETOLOGY METHOD 09/15/2024 11:25 AM EST [facility] RBC 4.40 3.80 - 4.80 M/mcL LAB HEMETOLOGY METHOD 09/15/2024 11:25 AM EST [facility] Hemoglobin 11.5 11.5 - 16.0 g/dL LAB HEMETOLOGY METHOD 09/15/2024 11:[address] [facility] Hematocrit 37.1 35.0 - 47.0 % LAB HEMETOLOGY METHOD 09/15/2024 11:[address] [facility] MCV 84.5 79.0 - 98.0 FL LAB HEMETOLOGY METHOD 09/15/2024 11:[address] [facility] MCH 26.2(L) 27.0 - 32.0 pcg LAB HEMETOLOGY METHOD 09/15/2024 11:[address] [facility] MCHC 31.0(L) 32.0 - 37.0 g/dL LAB HEMETOLOGY METHOD 09/15/2024 11:[address] [facility] RDW 17.3(H) 11.0 - 15.0 % LAB HEMETOLOGY METHOD 09/15/2024 11:[address] [facility] Platelets 247 130 - 400 K/mcL LAB HEMETOLOGY METHOD 09/15/2024 11:[address] [facility] MPV 10.1 7.0 - 11.0 FL LAB HEMETOLOGY METHOD 09/15/2024 11:[address] [facility] NRBC 0.0 <1.0 % LAB HEMETOLOGY METHOD 09/15/2024 11:[address] [facility] NRBC Absolute 0.00 <0.10 K/mcL LAB HEMETOLOGY METHOD 09/15/2024 11:[address] [facility] Neutrophils Relative 50.6 % LAB HEMETOLOGY METHOD 09/15/2024 11:[address] [facility] Lymphocytes Relative 41.6 % LAB HEMETOLOGY METHOD 09/15/2024 11:[address] [facility] Monocytes Relative 6.1 % LAB HEMETOLOGY METHOD 09/15/2024 11:[address] [facility] Eosinophils Relative 1.2 % LAB HEMETOLOGY METHOD 09/15/2024 11:[address] [facility] Basophils Relative 0.3 % LAB HEMETOLOGY METHOD 09/15/2024 11:[address] [facility] Immature Granulocytes Relative 0.2 % LAB HEMETOLOGY METHOD 09/15/2024 11:[address] [facility] Neutrophils Absolute 2.97 1.50 - 7.00 K/[facility] LAB HEMETOLOGY METHOD 09/15/2024 11:25 AM EST [facility] Lymphocytes Absolute 2.44 1.00 - 5.00 K/[facility] LAB HEMETOLOGY METHOD 09/15/2024 11:25 AM EST [facility] Monocytes Absolute 0.36 0.20 - 1.00 K/[facility] LAB HEMETOLOGY METHOD 09/15/2024 11:25 AM EST [facility] Eosinophils Absolute 0.07 0.00 - 0.50 K/[facility] LAB HEMETOLOGY METHOD 09/15/2024 11:25 AM EST [facility] Basophils Absolute 0.02 0.00 - 0.20 K/[facility] LAB HEMETOLOGY METHOD 09/15/2024 11:[address] [facility] Immature Granulocytes Absolute 0.01 0.00 - 0.03 K/[facility] LAB HEMETOLOGY METHOD 09/15/2024 11:25 AM EST [facility] Blood Venous blood specimen / Unknown Venipuncture / Unknown 09/15/2024 10:40 AM EST 09/15/2024 11:17 AM EST us Subramflower Perez MD LAB BLOOD ORDERABLE S Final Result [facility] [address] [place] [address], * Iron and TIBC (09/15/2024 10:40 AM EST) Iron 76 40 - 150 mcg/dL LAB CHEMISTRY METHOD 09/15/2024 1:11 PM EST [facility] TIBC 280 250 - 450 mcg/dL LAB CHEMISTRY METHOD 09/15/2024 1:[address] [facility] Iron Saturation 27 15 - 50 % LAB CHEMISTRY METHOD 09/15/2024 1:11 PM EST [facility] Blood Venous blood specimen / Unknown Venipuncture / Unknown 09/15/2024 10:40 AM EST 09/15/2024 11:17 AM EST us Gage Perez MD LAB BLOOD ORDERABLE S Final Result [facility] [address] [place] [address], [place] [phone] * (ABNORMAL) Ferritin (09/15/2024 10:40 AM EST) [facility] Ferritin 282(H) 8 - 252 ng/mL LAB CHEMISTRY METHOD 09/15/2024 1:11 PM EST [facility] Blood Venous blood specimen / Unknown Venipuncture / Unknown 09/15/2024 10:40 AM EST 09/15/2024 11:17 AM EST Gage Perez MD LAB BLOOD ORDERABLE S Final Result [facility] [address] [place] [address], [place] [phone] * Annual BMP Blood Test (07/07/2021) [facility] Annual BMP Blood Test Abstracted Historical Provider HEALTH MAINTENANCE Final Result * (ABNORMAL) Lipid panel (07/07/2021) [facility] LDL/HDL Ratio 6(A) 0 - 4 Triglycerides 114 0 - 150 mg/dL Cholesterol 270(A) 0 - 200 mg/dL HDL 47 >=40 mg/dL LDL Cholesterol 201(A) 0 - 100 mg/dL Blood Venous blood specimen / Unknown Historical Provider LAB BLOOD ORDERABLES Edwina l Result * Hepatitis C Screening (11/23/2013) [facility] Hepatitis C Screening Abstracted us Historical Provider HEALTH MAINTENANCE Final Result * Colonoscopy (09/21/2008) Colonoscopy No Interpretation , Abstracted Anatomical Region Laterality Modality Other us Historical Provider HEALTH MAINTENANCE Final Result from Last 3 Months or Most Recently Relevant to Health Maintenance Insurance [employer] MEDICARE MEDICAID - [place] Care Teams Lab Clerk Relationship Specialty Start Date End Date Josué Richards MD [id number] [place] [address] PCP - General Internal Medicine 09/15/24
--- OUTSIDE RECORDS SUMMARY | 2024-11-28 21:22 | XMS_ITS ---
Author Organization [facility] Address [address] [address] Care Team Providers Care Sociology Adjunct Instructor Name Role Phone Singh Brown CNP Primary Care Provider Unavaila ELIANE Suarez [phone] REASON FOR VISIT lab results Medications Medication SIG (Take, Route, Fr equency, Duration) Notes Start Date End Date Status Colchicine 0.6 MG 1 tablet Orally once a day for 30 days 09/29/2024 Active Encounters Encounter Location Date Provider Diagnosis [facility] [address] [address] 09/29/2024 ELIANE VAN Plan Of Treatment Medication Medication Name Sig Start Date Stop Date Notes Colchicine 0.6 MG 1 tablet Orally once a day for 30 days 0 09/29/2024 Progress Notes * ESTEPHANIANi OLIVASDOB:1955 (68 yo F)Acc No.[id number]:09/29/2024 Patient:?Ni BEST :1955???Age:68 Y???Sex:Female Phone: Address:[address] [place] [address], [phone] * Refills? Start Colchicine Tablet, 0.6 MG, Orally, 30 Tablet, 1 tablet, once a day, 30 days, Refills=2 * true * Date:? Generated for Jeannette lara/Patti/eTransmitting on:?11/28/2024 09:21 PM EDT
--- OUTSIDE RECORDS SUMMARY | 2024-11-28 21:22 | XMS_ITS | Clinical Summary ---
Author Organization [facility] Address [address] [facility] [address] [place] [address] Phone Care Team Providers Care Cover Cutter Name Role Phone Singh Brown NP Primary Care Provider Allergies Active Allergy Reactions Criticality Noted Date Comments Ibuprofen 06/22/2022 Amlodipine Swelling 09/28/2022 Ascriptin 08/19/2011 Throat closing Atorvastatin 04/30/2010 myalgias Corticosteroids 12/26/2014 Hypertension Cyclobenzaprine Other (see comments) 09/28/2022 Diphenhydramine Hcl Swelling 11/05/2020 Nsaids 06/22/2022 Peanut (Diagnostic) Hives,Itching 11/05/2020 Peanut-Containing Drug Products 07/13/2022 Medications hydroCHLOROthiaz heriberto 25 MG tablet Take 25 mg by mouth 1 (one) time each day 02/10/2023 Active pravastatin (PRAVACHOL) 20 MG tablet Take 20 mg by mouth every night 02/10/2023 Active cholecalciferol (VITAMIN D-3) 25 MCG (1000 UT) capsule Take 1,000 Units by mouth 1 (one) time each day Active Active Problems Problem Noted Date Diagnosed Date Stage 3 chronic kidney disease, not otherwise sp ecified 03/12/2023 Chronic kidney disease stage 3 04/07/2010 Hypertension 03/21/2010 Resolved Problems Problem Noted Date Diagnosed Date Resolved Date Allergic rhinitis 01/21/2023 01/21/2023 Cervical spondylosis 01/21/2023 023 Family history of coronary arteriosclerosis 01/21/2023 01/21/2023 Impaired glucose tolerance 01/21/2023 0 01/21/2023 Patient noncompliance - general 01/21/2023 01/21/2023 Vitamin B deficiency 01/21/2023 023 Vitamin D deficiency 01/21/2023 023 Nasal congestion 06/17/2021 01/21/2023 Overview (07/21/2022): [facility]ANE Environmental allergy 05/21/20152022 Stress 08/18/2012 01/21/2023 History of cerebrovascular accident 08/05/2012 01/21/2023 Overview (07/21/2022): Int capsule on MRI, and ischemic vasc dz changes. Evaluated 2012 Dr Horne, could cause some imbalance but doesn't correspond to facial numbness that patient complains of, which she feels started after ?dental infection Hyperlipidemia 04/07/2010 01/21/2023 Overview (07/21/2022): Lipitor caused muscle weakness, as did other statins Fibromyalgia 03/21/2010 01/21/2023 Overview (07/21/2022): [facility] ([facility] [place]) Obese class I 03/21/2010 01/21/2023 Immunizations Immunization Administration Dates Next Due Tdap 03/21/2010,03/21/2010 Family History Medical History Relation Comments Heart disease Father Cancer Mother Relation Status Comments Father Mother Social History Tobacco Use Types Packs/Day Years Used Date Smoking Tobacco: Former Cigarettes Smokeless Tobacco: Never Tobacco Cessation:Counseling Given: Not Answered Alcohol Use Standard Drinks/Week Comments Not Currently 0 (1 standard drink = 0.6 oz pur e alcohol) Comments Unknown Sex and Gender Information Value Date Recorded Sex Assigned at Not on file Legal Sex Female 10:59 AM EDT Gender Identity Not on file Sexual Orientation Not on file Last Filed Vital Signs Vital Sign Reading Time Taken Comments Blood Pressure 130/90 03/12/2023 10:39 AM EDT Pulse 60 03/12/2023 10:39 AM EDT Temperature - - Respiratory Rate - - Oxygen Saturation 99% 09/28/2022 2:47 PM EST Inhaled Oxygen Concentration - - Weight 84 kg (185 lb 3.2 oz) 03/12/2023 10:39 AM EDT Height 162.6 cm (5' 4 ) 06/22/2022 2:44 PM EST Body Mass Index 31.79 06/22/2022 2:44 PM EST Plan of Treatment Health Maintenance Due Date Last Done Comments Breast Cancer Screening 1955 Pneumococcal Vaccine: 50+ Ye ars (1 of 2 - PCV) 1976 Colorectal Cancer Screening: Annual FOBT 2006 Colorectal Cancer Screening: Colonoscopy 2006 Colorectal Cancer Screening: Sigmoidoscopy 2006 Influenza Vaccine (Season Ended) 2025 Hepatitis B Vaccine Aged Out No longe r eligible based on patient's age to complete this topic Insurance Medicare Medicaid [place] Medicare Medicaid [place] Care Teams Cover Cutter Relationship Specialty Start Date End Date Singh Brown NP [address] [place] [address] PCP - General Nurse Practitioner 03/12/23
--- OUTSIDE RECORDS SUMMARY | 2024-11-28 21:22 | XMS_ITS ---
Author Organization [facility] Address [address] [place] [address] Care Team Providers Care Labor Arbitrator Name Role Phone Singh Brown CNP Primary Care Provider Unavaila DOROTHEA Suarez Unavailable [phone] Allergies Allergen (clinical drug ingredient) Drug/Non Drug Allergy documented on EMR Reaction Allergy Type Onset Date Status amlodipine Amlodipine edema Drug Allergy Activ e cyclobenzaprine Cyclobenzaprine Unknown Drug Allergy Active Non-steroidal anti-inflammatory agent (FN) NSAIDs hypertension Drug Allergy Active Results Component Value Reference Range Notes ESR Reviewed date:09/20/2024 07:37:20 AM Interpretation:26 Performing Lab: Notes/Report: 26 Uric Acid-720803 Reviewed date:10/02/2024 10:20:08 AM Interpretation: Performing Lab:[facility], [address] [place] [address], Phone - [phone], Director - Luz Marinadry Notes/Report: Uric Acid 7.7 3.0-7.2 mg/dL Therapeutic ta rget for gout patients: <6.0 Rheumatoid Factor (RF)-21889 2 Reviewed date:09/22/2024 09:21:45 AM Interpretation: Performing Lab:[facility], [address] [place] [address], Phone - [phone], Director - MDJodry Notes/Report: Rheumatoid Factor (RF) <10.0 <14.0 IU/mL Thyroid Peroxidase (TPO) Ab- [id number] Reviewed date:09/22/2024 09:21:50 AM Interpretation: Performing Lab:[facility], [address] [place] [address], Phone - [phone], Director - MDJodry Notes/Report: Thyroid Peroxidase (TPO) Ab 15 0-34 IU/mL Lyme Disease Serology w/Refl ex-[id number] Reviewed date:09/22/2024 09:22:05 AM Interpretation: Performing Lab:[facility] [address], Phone - [phone], Director - NYBerenice Notes/Report: Lyme Total Antibody CHAY Negative Negative Lyme antibodies not detected. Reflex testing is not indicated. No laboratory evidence of infection with B. burgdorferi (Lyme disease). Negative results may occur in patients recently infected (less than or equal to 14 days) with B. burgdorferi. If recent infection is suspected, repeat testing on a new sample collected in 7 to 14 days is recommended. Anti-CCP Ab, IgG/IgA-[id number] Reviewed date:09/22/2024 09:21:24 AM Interpretation: Performing Lab:[facility], [address] [place] [address], Phone - [phone], Director - Domi Notes/Report: Anti-CCP Ab, IgG/IgA 4 0-19 units Negative <20 Weak positive 20 - 39 Moderate positive 40 - 59 Strong positive >59 DONTA by IFA Rfx Titer/Pattern -[id number] Reviewed date:09/22/2024 09:21:39 AM Interpretation: Performing Lab:[facility], [address] [place] [address], Phone - [phone], Director - Domi Notes/Report: DONTA by IFA Rfx Titer/Pattern Negative Negative <1:80 Borderline 1:80 Positive >1:80 ICAP nomenclature: AC-0 For more information about Hep-2 cell patterns use ANApatterns.org, the official website for the International Consensus on Antinuclear Antibody (DONTA) Patterns (ICAP). TSH reflex to [id number] Reviewed date:09/22/2024 09:21:56 AM Interpretation: Performing Lab:[facility], [address] [place] [address], Phone - [phone], Director - MDJodry Notes/Report: TSH 2.350 0.450-4.500 uIU/mL REASON FOR VISIT Lt foot pain Medications Medication SIG (Take, Route, Frequency, Duration) Notes Start Date End Date Status Ferrous Sulfate 324 MG 1 tablet Orally Three times a Week Active Cyanocobalamin 500 MCG 1 tablet Orally O nce a day Active Atorvastatin Calcium 80 MG 1 tablet Orally Once a day every other day Active Aspirin 81 81 MG 1 tablet Orally Once a day Active Folic Acid [...] the morning Orally Once a day Active Vitamin D3 25 MCG (1000 UT) 1 capsule Orally Once a day Active Vitamin C 500 MG 1 tablet Orally Once a day Active Problems Problem Type SNOMED Code ICD Code Onset Dates Problem Status W/U Status Risk Notes Problem 6615636 Inflammatory arthritis (M19.90) Active confirmed Problem 766094094 Primary osteoarthritis, left ankle and foot (M19.072) Active confirmed Vital Signs Temperature 97.1 degrees Fahrenheit 09/13/19 25 Heart Rate 65 /min 09/13/2024 Respiratory Rate 16 /min 09/13/2024 Height 5ft 3in in 09/13/2024 Weight 189.0 lbs 09/13/2024 BMI 33.48 kg/m2 09/13/2024 Encounters Encounter Location Date Provider Diagnosis [facility] [address] [facility] [address] [place] [address] 09/13/2024 DOROTHEA REHAN Inflammatory arthritis M19.90 ; Primary osteoarthritis, left ankle and foot M19.072 and Pain in left foot M79.672 Assessments Encounter Date Diagnosis (ICD Code) Assessment Notes Treatment Notes Treatment Clinical Notes Section Notes 09/13/2024 Inflammatory arthritis (ICD-10 - M19.90) This [...] plan, and lab work was sent to [facility] per the patient's request. I will contact [...] the results of the blood work. 09/13/2024 Primary osteoarthritis, left ankle and foot (ICD-10 - M19.072) 09/13/2024 Pain in left foot (ICD-10 - M79.672) Plan Of Treatment Treatment Notes Assessment Notes Inflammatory arthritis This is an outpatient visit for evaluation [...] plan, and lab work was sent to [facility] per the patient's request. I will contact [...] Fast-acting inflammation control, both oral and injections, Disease-Modifying Anti-Rheumatic Drugs (DMARDs): Slow disease progression (e.g., methotrexate, sulfasalazine), Biologic Therapies: Target specific immune responses (e.g., TNF inhibitors, IL-17 blockers), Uric Acid-Lowering Drugs (for Gout): Reduce flare-ups. The patient would like to hold off on trying any treatment options until we receive the results of the blood work. Pending Test Test Name Order Date X ray : Foot, left 3v 09/13/2024 Next Appt Details Follow Up: after testing, Re ason: Progress Notes * Zahraa BEST:1955 (68 yo F)Acc No.[id number]:09/13/2024 Consult note Patient:Ni GOODEN Provider:?Dorothea Van DPM :1955???Age:68 Y???Sex:Female D ate:09/13/2024 Phone: Address:[address] [place] [address], [phone] Pcp:Singh Brown CNP Subjective: * Chief Complaints: * ???Lt foot pain * HPI: ???Constitutional:? This 68 y/o female presents to my office with a complaint of acute on chronic left foot pain. She states that she broke her left big toe in 2016. This healed without incident. She states shortly after in 2017, she began to have periods of random pain and swelling in the left big toe. She states this would come on suddenly, last for a couple of weeks, and then resolve. She denies any further injury or trauma to the foot. When this would happen she would ice the foot, massage and, use bengay. She states about 1 month ago, a similar issue occurred. Her left foot became pain and swollen. She states the foot was so swollen she could not put a shoe on the foot. She does have a history of gout on the right foot. The swelling and pain has improved, but the foot is still sore. She states this is also the first time her whole foot became swollen. She has a family history of autoimmune arthropathies. She is unable to take NSAIDs due to her chronic kidney disease. She states the left foot is still slightly swollen and sore. She has no other foot complaints this visit. Allergies and medical history reviewed. * ROS:?GENERAL: Pt denies nausea, fever, vomiting, chills, or shortness of breath. Pt in NAD. ALLERGY: patient denies any new allergy HEME/ONC: patient denies any bleeding or clotting disorders CARDIOLOGY: pt denies chest pain, palpitations LUNGS: pt denies shortness of breath ABDOMEN: patient denies any bloating, abdominal pain, or swelling MUSCULOSKELETAL: See HPI,occasional joint pain SKIN: see HPI, otherwise no lesions, rash or itching NEURO: No persistent headache, weakness or numbness PSYCH: patient denies any current anxiety or depression The remainder of the review of systems is noncontributory. * Medical History:? * Surgical History:?Stillbirth 1984 * Hospitalization/Major Diagno stic Procedure:?vaginal delivery (boy) 1974vaginal delivery (girl) 1975vaginal delivery (girl) 1977vaginal delivery (girl) tillbirth (boy) 1984vaginal delivery (girl) 1987vaginal delivery (girl) 1995heart attack 06/20/2024 * Family History:?Father: dece ased, congestive heart failure, COPD; chronic obstructive pulmonary disease, tobacco use.?Daughter(s): oldest daughter- leaking valve3 daughters- hypertension.?Mother: , brain cancer.?Siblings: brother- heart disease.?1 son(s) , 5 daughter(s) . .? neice 46y/o- lung cancer, brain cancer, bone cancer, stomach cancer neice - heart disease neice - kidney disease. * Social History:?tobacco: former smoker alcohol: never. * Medications:?TakingVitamin D 3 25 MCG (1000 UT) Capsule 1 capsule Orally Once a day Vitamin C 500 MG Tablet Chewable 1 tablet Orally Once a day Pantoprazole Sodium 40 MG Tablet Delayed Release 1 tablet 1/2 to 1 hour before morning meal Orally Once a day Nitrostat 0.4 MG Tablet Sublingual 1 tablet under the tongue and allow to dissolve as needed. Take every 5 minutes up to 3 times if chest pain persists Sublingual Three times a day NIFEdipine ER 30 MG Tablet Extended Release 24 Hour 1 tablet on an empty stomach Orally Once a day Metoprolol Succinate 25 MG Capsule ER 24 Hour Sprinkle 1 capsule Orally Once a day Isosorbide Mononitrate ER 30 MG Tablet Extended Release 24 Hour 1 tablet in the morning Orally Once a day Folic Acid 1 MG Tablet 1 tablet Orally Once a day Ferrous Sulfate 324 MG Tablet Delayed Release 1 tablet Orally Three times a Week Cyanocobalamin 500 MCG Tablet 1 tablet Orally Once a day Atorvastatin Calcium 80 MG Tablet 1 tablet Orally Once a day , Notes to Pharmacist: every other dayAspirin 81 81 MG Tablet Delayed Release 1 tablet Orally Once a day Medication List reviewed and reconciled with the patientTaking Vitamin D3 25 MCG (1000 UT) Capsule 1 capsule Orally Once a day Taking Vitamin C 500 MG Tablet Chewable 1 tablet Orally Once a day Taking Pantoprazole Sodium 40 MG Tablet Delayed Release 1 tablet 1/2 to 1 hour before morning meal Orally Once a day Taking Nitrostat 0.4 MG Tablet Sublingual 1 tablet under the tongue and allow to dissolve as needed. Take every 5 minutes up to 3 times if chest pain persists Sublingual Three times a day Taking NIFEdipine ER 30 MG Tablet Extended Release 24 Hour 1 tablet on an empty stomach Orally Once a day Taking Metoprolol Succinate 25 MG Capsule ER 24 Hour Sprinkle 1 capsule Orally Once a day Taking Isosorbide Mononitrate ER 30 MG Tablet Extended Release 24 Hour 1 tablet in the morning Orally Once a day Taking Folic Acid 1 MG Tablet 1 tablet Orally Once a day Taking Ferrous Sulfate 324 MG Tablet Delayed Release 1 tablet Orally Three times a Week Taking Cyanocobalamin 500 MCG Tablet 1 tablet Orally Once a day Taking Atorvastatin Calcium 80 MG Tablet 1 tablet Orally Once a day , Notes to Pharmacist: every other dayTaking Aspirin 81 81 MG Tablet Delayed Release 1 tablet Orally Once a day Medication List reviewed and reconciled with the patient * Allergies:?NSAIDs: hypertens ion - Side EffectsAmlodipine: edemaCyclobenzaprineno[Allergies Verified] Objective: * Vitals:?Wt:189.0lbs, Ht: 5ft 3in, BMI:33.48Index, HR:65/min, Temp:97.1F, RR:16/min, Ht-cm: 160.02, Wt-k.73 kg. * Examination: ???General Examination: ???GENERAL: Patient appears well nourished, with NAD. VASCULAR: Dorsalis pedis pulses are 2/4 bilaterally and Posterior tibial pulses are 2/4 bilaterally. Capillary filling time within normal limits the digits. No pallor on elevation or rubor on dependency. Each foot temperature is within normal limits. NEUROLOGICAL: Sharp/dull sensation intact bilaterally, position sense intact bilaterally to the tibial tuberosity. ORTHOPEDIC: Good muscle strength 4+/5 of all flexors and extensors. Dorsi flexion of ankle,0 degrees, plantar flexion WNL. No muscle atrophy. Flexible pes planus. Limited ROM of the left 1st metatarsophalangeal joint with pain on ROM, pain on palpation of the left hallux. Pain on palpation of the left subtalar joint and pain on ROM of the subtalar joint. DERMATOLOGICAL:Edema of the left foot around the 1st metatarsophalangeal joint and the ankle. No masses, openings, or skin lesions noted. Normal skin temperature, normal skin turgor. BIOMECHANICS: STJ ROM limited with pain left, MTJ ROM limited, 1st MPJ ROM limited with pain left. On weight-bearing, flexible pes planus. SHOES: sneakers. Therapeutic Interventions: Assessment: * Assessment: 1.?Inflammatory arthritis - M19.90 (Primary)???2.?Primary osteoarthritis, left ankle and foot - M19.072???3.?Pain in left foot - M79.672??? Plan: * Treatment: ?LAB: Uric Acid-[id number]* send to [facility] [address] in [facility] 09/13/2024 02:46:02 PM EST > [facility] [place] [facility] [phone] ?LAB: Rheumatoid Factor (RF)-[id number]* send to [facility] [address] in [facility] 09/13/2024 02:46:02 PM EST > Faxed lab order to [phone] ?LAB: Thyroid Peroxidase (TPO) Ab-[id number]* send to [facility] [address] in [facility] 09/13/2024 02:46:02 PM EST > Faxed lab order to [phone] ?LAB: Lyme Disease Serology w/Reflex-[id number]* send to [facility] [address] in [facility] 09/13/2024 02:46:02 PM EST > Faxed lab order to [phone] ?LAB: Anti-CCP Ab, IgG/IgA-[id number]* send to [facility] [address] in [facility] 09/13/2024 02:46:02 PM EST > Faxed lab order to [facility] [address] [place], [place] [phone] ?LAB: DONTA by IFA Rfx Titer/Pattern-[id number]* [place] [facility] [address] [place] 09/13/2024 02:46:02 PM EST > Faxed lab order to [facility] [address] [place], [place] [phone] ?LAB: TSH reflex to [id number]* [place] [facility] [address] [place] 09/13/2024 02:46:02 PM EST > Faxed lab order to [facility] [address] [place], [place] [phone] ?Imaging: X ray : Foot, left 3v* LEFT FOOT WEIGHT BEARING X-R AYS 3 VIEWS obtained during today's visit. On the AP view, there is medial spurring of the distal phalanges and joint space narrowing of the distal interphalangeal joints. Subchondral cystic changes seen within the bases of the proximal phalanges. There are erosive changes seen on the lateral aspect of metatarsal heads 2,3,4 on the AP and lateral views. Accessory sesamoids are seen under the 5th metatarsal head. There is joint space narrowing, flattening of the 1st metatarsal head, and degenerative changes seen around the sesamoids, indicating arthritic changes of the 1st metatarsophalangeal joint. On the lateral view a plantar calcaneal bone spur is noted. Calcification along the plantar aspect of the cuboid on the lateral view Dorsal degenerative changes seen within the midfoot on the lateral view. Erosive and degenerative changes seen. Notes: This is an outpatient visit for evaluation and management of a new patient, which required appropriate review of pertinent medical history, review of any previous imaging, review of all previous records, and examination and decision-making. Time was 60 minutes spent in review of all these facets including face to face discussion with the patient regarding my findings and in discussion of acurrent and future treatment plan. I discussed with [...] plan, and lab work was sent to [facility] per the patient's request. I will contact [...] options can include: Corticosteroids: Fast-acting inflammation control, bothoral and injections, Disease-Modifying Anti-Rheumatic Drugs (DMARDs): Slow disease progression (e.g., methotrexate, sulfasalazine), Biologic Therapies: Target specific immune responses (e.g., TNF inhibitors, IL- 17 blockers), Uric Acid-Lowering Drugs (for Gout): Reduce flare-ups. The patient would like to hold off on trying any treatment options until we receive the results of the blood work.??2.?Primary osteoarthritis, left ankle and foot?Imaging: X ray : Foot, left 3v* LEFT FOOT WEIGHT BEARING X-R AYS 3 VIEWS obtained during today's visit. On the AP view, there is medial spurring of the distal phalanges and joint space narrowing of the distal interphalangeal joints. Subchondral cystic changes seen within the bases of the proximal phalanges. There are erosive changes seen on the lateral aspect of metatarsal heads 2,3,4 on the AP and lateral views. Accessory sesamoids are seen under the 5th metatarsal head. There is joint space narrowing, flattening of the 1st metatarsal head, and degenerative changes seen around the sesamoids, indicating arthritic changes of the 1st metatarsophalangeal joint. On the lateral view a plantar calcaneal bone spur is noted. Calcification along the plantar aspect of the cuboid on the lateral view Dorsal degenerative changes seen within the midfoot on the lateral view. Erosive and degenerative changes seen. 3.?Pain in left foot?Imaging: X ray : Foot, left 3v* LEFT FOOT WEIGHT BEARING X-R AYS 3 VIEWS obtained during today's visit. On the AP view, there is medial spurring of the distal phalanges and joint space narrowing of the distal interphalangeal joints. Subchondral cystic changes seen within the bases of the proximal phalanges. There are erosive changes seen on the lateral aspect of metatarsal heads 2,3,4 on the AP and lateral views. Accessory sesamoids are seen under the 5th metatarsal head. There is joint space narrowing, flattening of the 1st metatarsal head, and degenerative changes seen around the sesamoids, indicating arthritic changes of the 1st metatarsophalangeal joint. On the lateral view a plantar calcaneal bone spur is noted. Calcification along the plantar aspect of the cuboid on the lateral view Dorsal degenerative changes seen within the midfoot on the lateral view. Erosive and degenerative changes seen. * Procedure Codes:?00562 X-RAY EXAM OF FOOT 3 Views, Modifiers: LT * Follow Up:?after testing * Billing Information: * Visit Code:? 88387 Office Visit, New Pt., Level 4. * Procedure Codes:? 20941 X-RAY EXAM OF FOOT 3 Views. Modifiers: LT * Sign off status: Completed true * Provider:?Dorothea Van DPM Date:? 09/13/2024 Generated for Jeannette lara/Patti/Lindaitting on:?11/28/2024 09:21 PM EDT History and Physical Notes * HPI (History of Present Illness) Category Sub-Category Detail Notes Category Not es Constitutional This 68 y/o f emale presents to my office with a complaint of acute on chronic left foot pain. She states that she broke her left big toe in 2016. This healed without incident. She states shortly after in 2017, she began to have periods of random pain and swelling in the left big toe. She states this would come on suddenly, last for a couple of weeks, and then resolve. She denies any further injury or trauma to the foot. When this would happen she would ice the foot, massage and, use bengay. She states about 1 month ago, a similar issue occurred. Her left foot became pain and swollen. She states the foot was so swollen she could not put a shoe on the foot. She does have a history of gout on the right foot. The swelling and pain has improved, but the foot is still sore. She states this is also the first time her whole foot became swollen. She has a family history of autoimmune arthropathies. She is unable to take NSAIDs due to her chronic kidney disease. She states the left foot is still slightly swollen and sore. She has no other foot complaints this visit. Allergies and medical history reviewed. Examination Category Sub-Category Detail Notes Category Not es General Examination GENERAL: Patient appears well nourished, with NAD. VASCULAR: Dorsalis pedis pulses are 2/4 bilaterally and Posterior tibial pulses are 2/4 bilaterally. Capillary filling time within normal limits the digits. No pallor on elevation or rubor on dependency. Each foot temperature is within normal limits. NEUROLOGICAL: Sharp/dull sensation intact bilaterally, position sense intact bilaterally to the tibial tuberosity. ORTHOPEDIC: Good muscle strength 4+/5 of all flexors and extensors. Dorsi flexion of ankle,0 degrees, plantar flexion WNL. No muscle atrophy. Flexible pes planus. Limited ROM of the left 1st metatarsophalangeal joint with pain on ROM, pain on palpation of the left hallux. Pain on palpation of the left subtalar joint and pain on ROM of the subtalar joint. DERMATOLOGICAL:Edema of the left foot around the 1st metatarsophalangeal joint and the ankle. No masses, openings, or skin lesions noted. Normal skin temperature, normal skin turgor. BIOMECHANICS: STJ ROM limited with pain left, MTJ ROM limited, 1st MPJ ROM limited with pain left. On weight-bearing, flexible pes planus. SHOES: sneakers
--- OUTSIDE RECORDS SUMMARY | 2024-11-28 21:22 | XMS_ITS ---
Author Organization [facility] Address [address] [address] Care Team Providers Care Automotive Internet Sales Consultant Name Role Phone Singh Brown CNP Primary Care Provider Unavaila ELIANE Suarez Unavailable [phone] REASON FOR VISIT FYI Encounters Encounter Location Date Provider Diagnosis [facility] [address] [address] 11/21/2024 ELIANE VAN Plan Of Treatment No Information Progress Notes * Ni BESTDOB:1955 (69 yo F)Acc No.[id number]:11/21/2024 Patient:?ESTEPHANIAKeyon OLIVASia :1955???Age:69 Y???Sex:Female Phone: Address:[address] [place] [address], [phone] * true * Date:? Generated for Printi jane/Adalidg/eTransmitting on:?11/28/2024 09:21 PM EDT
[2024-11-28 21:25] LABS: Alanine Aminotransferase 30 U/L (0-31); Alkaline Phosphatase 119 U/L (39-117); Anion Gap 13 (12-20); Aspartate Amino Transferase 26 U/L (5-31); Bilirubin Total 0.2 mg/dL (0.0-1.0); Blood Urea Nitrogen 20 mg/dL (9-16); Calcium 9.3 mg/dL (8.4-10.2); Carbon Dioxide 25 mmol/L (22-29); Chloride 109 mmol/L (96-108); Creatinine Clr Calc Pharmacy 39.2; Estimated Glomerular Filt Rate 37; Glucose Random 87 mg/dL (60-115); Potassium 4.3 mmol/L (3.3-5.1); Sodium 143 mmol/L (135-145); Total Protein 7.4 g/dL (6.5-8.0)
[2024-11-28 21:34] LABS: Troponin-I High Sensitivity 5.6 ng/L (<3.5-17.0)
[2024-11-28 23:50] VITALS: BP 131/87; PULSE 60; RESP 16; TEMP 36.8; O2SAT 98
[2024-11-28 23:52] VITALS: BP 131/87; PULSE 60; RESP 16; TEMP 36.8; O2SAT 98
== END 2024-11-29 01:40 | disposition home or self-care (01) ==
PROVIDERS: Physician Assistant; Emergency Provider Emergency Medicine; PCP Nurse Practitioner
DX: R07.9 Chest pain, unspecified (principal); R20.0 Anesthesia of skin; M54.2 Cervicalgia; I25.10 Atherosclerotic heart disease of native coronary artery without angina pectoris; N18.9 Chronic kidney disease, unspecified; I25.2 Old myocardial infarction
CPT/HCPCS: 36415; 70450; 71045; 80053; 84484; 85025; 85610; 85730; 93005; 99284

== ENCOUNTER → 2024-11-28 20:30 | Outpatient (BNV) | payer MEDICARE, MEDICAID, SELFPAY | PROVIDERS: Emergency Provider Emergency Medicine; PCP Nurse Practitioner; Visit Provider Internal Medicine Cardiovascular Disease | DX: R00.1 Bradycardia, unspecified (principal) | CPT/HCPCS: 93010 ==

== ENCOUNTER → 2024-11-28 20:30 | Outpatient (BNV) | payer MEDICARE, MEDICAID, SELFPAY | PROVIDERS: Emergency Provider Emergency Medicine; PCP Nurse Practitioner; Visit Provider Radiology Diagnostic Radiology | DX: R07.9 Chest pain, unspecified (principal); R29.810 Facial weakness | CPT/HCPCS: 70450; 71045 ==

== ENCOUNTER 2024-11-29 11:14 | Outpatient (AMB) | payer MEDICARE, MEDICAID, SELFPAY ==
[2024-11-29 11:04] VITALS: BP 130/86; PULSE 80; O2SAT 99; BMI 30.9
--- NOTE | 2024-11-29 11:04 | HO.NEPHOV ---
Vital Signs 11/29/24 11:04 Height 5 ft 4.3 in Weight 181 lb 8 oz BMI 30.9 BP 130/86 Blood Pressure Location Lt brachial Position Sitting Pulse 80 Pulse Source Pulse Oximeter Pulse Oximetry (%) 99 Oxygen Delivery Method Room Air Intake Visit Reasons: R/S 11/01/2024/ LVM Allergies ibuprofen Allergy (Mild, Verified 11/29/24 11:05) high blood pressure losartan Adverse Reaction (Mild, Verified 11/29/24 11:05) Muscle Pain lisinopril Adverse Reaction (Unknown, Verified 11/29/24 11:05) Unknown Aspirin Allergy (Mild, Uncoded 11/29/24 11:05) Hives Medication List - Last Reconciled 11/29/24 by Tushar Tripathi MD aspirin 81 mg PO DAILY atorvastatin 80 mg PO DAILY cholecalciferol (vitamin D3) 25 mcg PO DAILY isosorbide mononitrate ER 60 mg PO QAM metoprolol succinate ER 25 mg PO DAILY nifedipine ER 30 mg PO DAILY nitroglycerin mg sublingual HPI Comments Details: 67 yr old woman with HTN Here for follow up She is taking HCTX 25 mg half a tab;Reportedly home BP is around 139 mmHG systolic 04/05/24 She stopped Aldactone;No new issues 11/29/24 Was in ER last night. Had chest discomfort- Work up was unremarkable [facility] Medical History Rheumatoid aortitis High cholesterol Social History Household Members: Children Alcohol intake: never Patient Tobacco Use Status: Never used Tobacco Physical Exam Vital Signs: Last Vital Signs Pulse 80 11/29/24 11:04 BP 130/86 11/29/24 11:04 Pulse Ox 99 11/29/24 11:04 Oxygen Delivery Method Room Air 11/29/24 11:04 BMI result Body Mass Index 30.9 Const General: comfortable; No acute distress Orientation/consciousness: patient oriented x3 Eyes General: appearance normal, both eyes and all related structures Visual Allan: normal visual allan by confrontation Neck Neck: Yes supple and Yes no JVD Resp Effort & Inspection: normal respiratory effort and respiratory effort not decreased Auscultation: rhonchi Cardio Palpation: no palpable S3 and no palpable S4 Heart sounds: no rubs GI Inspection: Yes normal to inspection Palpation (GI): Soft to palpation Percussion: Yes normal to percussion Auscultation: normal bowel sounds General: Yes no CVA tenderness Back/Spine/Pelvis Back: no CVA tenderness Skin General skin exam: no petechiae and no purpura Neuro General: patient oriented x3 and no focal motor deficits Extrem General: No clubbing and No edema Results Reviewed Nephrology Results: Hgb 11.9 g/dl (12.0-16.0) L 11/28/24 WBC 5.1 X10*3/uL (4.8-10.8) 11/28/24 Plt Count 210 X10*3/uL (160-400) 11/28/24 Sodium 143 mmol/L (135-145) 11/28/24 Potassium 4.3 mmol/L (3.3-5.1) 11/28/24 Chloride 109 mmol/L (96-108) H 11/28/24 Carbon Dioxide 25 mmol/L (22-29) 11/28/24 BUN 20 mg/dL (9-16) H 11/28/24 Creatinine 1.41 mg/dL (0.5-1.4) H 11/28/24 Calcium 9.3 mg/dL (8.4-10.2) 11/28/24 Assessment & Plan Assessment & Plan (1) HTN (hypertension): Code(s): I10 - Essential (primary) hypertension Category: Medical (2) CKD (chronic kidney disease): Code(s): N18.9 - Chronic kidney disease, unspecified Category: Medical Plan CKD 3 Creatinine is stable Avoid nephrotoxins BP better controlled Will follow Cr and K Discussed low salt diet and weight loss NO changes were made Orders: Orders Basic Metabolic Panel 6 Months I10 - Essential (primary) hypertension, N18.9 - Chronic kidney disease, unspecified Coding Level of Care Code Est Pt Level 4 (66609) Diagnoses HTN (hypertension) I10 CKD (chronic kidney disease) N18.9
--- OUTSIDE RECORDS SUMMARY | 2024-11-29 13:35 | XMS_ITS | Clinical Summary ---
Author Organization [facility] Address [address] [place] [address] Care Team Providers Care Fittings Tightener Name Role Phone Dexter Burt Primary Care Provider [phone] Source Comments PLEASE NOTE, if this patient [...] Diagnosed Date Stage 3a chronic kidney disease ([facility]) 2022 Family history of coronary artery [...] Bone Density Screening 2022 Falls Prevention 2022 Kyh-AGHIX-38 ( season) 2024 Imm-Influenza (#1) 2024 08/28/2015 Alcohol and Drug Screen 08/16/2024 Depression Annual Screen 08/16/2024 Imm-DTaP/Tdap/Td (4 - Td or Tdap) 09/21/2029 09/21/2019, 03/21/2010, 03/21/2010 Insurance [place]ICA[place] Care Teams Fittings Tightener Relationship Specialty Start Date End Date Dexter Burt PA [address] [place] [address] PCP - General FAMILY MEDICINEBETI 05/06/22
--- OUTSIDE RECORDS SUMMARY | 2024-11-29 13:35 | XMS_ITS ---
Author Organization [facility] Address [address] [address] Care Team Providers Care Building Performance Consultant Name Role Phone Singh Brown CNP Primary Care Provider Unavaila ELIANE Suarez [phone] REASON FOR VISIT lab results Medications Medication SIG (Take, Route, Fr equency, Duration) Notes Start Date End Date Status Colchicine 0.6 MG 1 tablet Orally once a day for 30 days 09/29/2024 Active Encounters Encounter Location Date Provider Diagnosis [facility] [address] [address] 09/29/2024 ELIANE VAN Plan Of Treatment Medication Medication Name Sig Start Date Stop Date Notes Colchicine 0.6 MG 1 tablet Orally once a day for 30 days 0 09/29/2024 Progress Notes * ESTEPHANIANi OLIVASDOB:1955 (68 yo F)Acc No.[id number]:09/29/2024 Patient:?Ni BEST :1955???Age:68 Y???Sex:Female Phone: Address:[address] [place] [address], [phone] * Refills? Start Colchicine Tablet, 0.6 MG, Orally, 30 Tablet, 1 tablet, once a day, 30 days, Refills=2 * true * Date:? Generated for Jeannette lara/Patti/eTransmitting on:?11/29/2024 11:39 AM EDT
--- OUTSIDE RECORDS SUMMARY | 2024-11-29 13:35 | XMS_ITS | Clinical Summary ---
Author Organization [facility] Address [address] [place] [address] Care Team Providers Care Behavioral Sciences Instructor Name Role Phone Josué Richards MD Primary Care Provider [phone] Allergies Active Allergy Reactions Criticality Noted Date Comments Asa-Calcium Aeaj-Tfg-Wxlbhvnd 2011 Throat closing Atorvastatin Calcium 04/30/2010 myalgias [...] 08/18/2012 CKD stage 3a, GFR 45-59 ml/min ([facility] V24, [facility] V28) 04/07/2010 Hyperlipidemia 04/07/2010 Overview (09/18/2024): Lipitor caused muscle weakness, as did other statins Fibromyalgia 03/21/2010 Overview (09/18/2024): [facility] (Dr [place]) Hypertension 03/21/2010 Obesity (BMI 30.0-34.9) 03/21/2010 Encounters Date Type Department Care Team Description 10/02/2024 3:00 PM EST - 10/02/2024 11:59 PM EST Hospital Encounter [address] [address] Gage Haro MD Refusal of blood product (Primary Dx); Other iron deficiency anemias; Anemia due to stage 3a chronic kidney disease ([facility]/HCC V24, [facility] V28); CKD stage 3a, GFR 45-59 ml/min (CMS/HCC V24, CMS/[facility] V28) Discharge Disposition: Home or Self Care 09/26/2024 2:28 PM EST - 09/26/2024 11:59 PM EST Hospital Encounter [address] [address] Gage Haro MD Other iron deficiency anemias (Primary Dx); Anemia due to stage 3a chronic kidney disease (CMS/HCC V24, CMS/HCC V28); CKD stage 3a, GFR 45-59 ml/min (CMS/HCC V24, CMS/HCC V28); Refusal of blood product Discharge Disposition: Home or Self Care 09/19/2024 1:00 PM EST Office Visit [facility] Hematology Oncology [address] [place] [address] Gage Haro MD Other iron deficiency anemia (Primary Dx); Low hemoglobin and low hematocrit; CKD stage 3a, GFR 45-59 ml/min ([facility] V24, [facility] V28); Anemia due to stage 3a chronic kidney disease ([facility] V24, [facility] V28); Refusal of blood product; Coronary artery disease of [place] artery of [place] heart with stable angina pectoris ([facility] V24); ST elevation myocardial infarction involving left anterior descending (LAD) coronary artery ([facility] V24, [facility] V28); Other iron deficiency anemias from Last 3 Months Immunizations Name Administration Dates Next Due Td Tetanus diptheria (Tdvax) 7yo and older 09/21 Tdap Tetanus diptheria acell ular pertussis (Boostrix; Adacel) 7yo and older 03/21/2010 Surgical History Surgery Date Site/Laterality Comments SECTION x1 PROCEDURE: [place] DELIVERY ONLY Medical History Medical History Date Comments Hypertension DX:Hypertension Hyperlipidemia DX:Hyperlipidemi a CKD (chronic kidney disease) stage 3, GFR 30-59 ml/min ([facility] V24, [facility] V28) DX:CKD (chroni c kidney disease) stage 3, GFR 30-59 ml/min ([facility]) Fibromyalgia DX:Fibromyalgia Anxiety DX:Anxiety Allergic [...] B12 and folate (09/15/2024 10:40 AM EST) [facility] Vitamin B-12 1,029(H) 250 - 900 pcg/mL LAB CHEMISTRY METHOD 09/15/2024 1:11 PM EST [facility] Folate 16.4 2.8 - 17.0 ng/ml LAB CHEMISTRY METHOD 09/15/2024 1:11 PM EST [facility] Blood Venous blood specimen / Unknown Venipuncture / Unknown 09/15/2024 10:40 AM EST 09/15/2024 11:17 AM EST Subramflower Perez MD LAB BLOOD ORDERABLE S Final Result [facility] [address] [place] [address], [place] [phone] * (ABNORMAL) CBC auto differential (09/15/2024 10:40 AM EST) [facility] WBC 5.9 4.8 - 10.8 K/mcL LAB HEMETOLOGY METHOD 09/15/2024 11:25 AM EST [facility] RBC 4.40 3.80 - 4.80 M/mcL LAB HEMETOLOGY METHOD 09/15/2024 11:25 AM EST [facility] Hemoglobin 11.5 11.5 - 16.0 g/dL LAB HEMETOLOGY METHOD 09/15/2024 11:25 AM [facility] Hematocrit 37.1 35.0 - 47.0 % LAB HEMETOLOGY METHOD 09/15/2024 11:25 AM [facility] MCV 84.5 79.0 - 98.0 FL LAB HEMETOLOGY METHOD 09/15/2024 11:25 AM [facility] MCH 26.2(L) 27.0 - 32.0 pcg LAB HEMETOLOGY METHOD 09/15/2024 11:25 AM [facility] MCHC 31.0(L) 32.0 - 37.0 g/dL LAB HEMETOLOGY METHOD 09/15/2024 11:25 AM [facility] RDW 17.3(H) 11.0 - 15.0 % LAB HEMETOLOGY METHOD 09/15/2024 11:25 AM [facility] Platelets 247 130 - 400 K/mcL LAB HEMETOLOGY METHOD 09/15/2024 11:25 AM [facility] MPV 10.1 7.0 - 11.0 FL LAB HEMETOLOGY METHOD 09/15/2024 11:25 AM [facility] NRBC 0.0 <1.0 % LAB HEMETOLOGY METHOD 09/15/2024 11:25 AM [facility] NRBC Absolute 0.00 <0.10 K/mcL LAB HEMETOLOGY METHOD 09/15/2024 11:25 AM [facility] Neutrophils Relative 50.6 % LAB HEMETOLOGY METHOD 09/15/2024 11:25 AM [facility] Lymphocytes Relative 41.6 % LAB HEMETOLOGY METHOD 09/15/2024 11:25 AM [facility] Monocytes Relative 6.1 % LAB HEMETOLOGY METHOD 09/15/2024 11:25 AM [facility] Eosinophils Relative 1.2 % LAB HEMETOLOGY METHOD 09/15/2024 11:25 AM [facility] Basophils Relative 0.3 % LAB HEMETOLOGY METHOD 09/15/2024 11:25 AM [facility] Immature Granulocytes Relative 0.2 % LAB HEMETOLOGY METHOD 09/15/2024 11:25 AM [facility] Neutrophils Absolute 2.97 1.50 - 7.00 K/[facility] LAB HEMETOLOGY METHOD 09/15/2024 11:25 AM EST [facility] Lymphocytes Absolute 2.44 1.00 - 5.00 K/[facility] LAB HEMETOLOGY METHOD 09/15/2024 11:25 AM EST [facility] Monocytes Absolute 0.36 0.20 - 1.00 K/[facility] LAB HEMETOLOGY METHOD 09/15/2024 11:25 AM EST [facility] Eosinophils Absolute 0.07 0.00 - 0.50 K/[facility] LAB HEMETOLOGY METHOD 09/15/2024 11:25 AM EST [facility] Basophils Absolute 0.02 0.00 - 0.20 K/[facility] LAB HEMETOLOGY METHOD 09/15/2024 11:25 AM [facility] Immature Granulocytes Absolute 0.01 0.00 - 0.03 K/[facility] LAB HEMETOLOGY METHOD 09/15/2024 11:25 AM EST [facility] Blood Venous blood specimen / Unknown Venipuncture / Unknown 09/15/2024 10:40 AM EST 09/15/2024 11:17 AM EST us Subramflower Perez MD LAB BLOOD ORDERABLE S Final Result [facility] [address] [place] [address], * Iron and TIBC (09/15/2024 10:40 AM EST) Iron 76 40 - 150 mcg/dL LAB CHEMISTRY METHOD 09/15/2024 1:11 PM EST [facility] TIBC 280 250 - 450 mcg/dL LAB CHEMISTRY METHOD 09/15/2024 1:11 PM [facility] Iron Saturation 27 15 - 50 % LAB CHEMISTRY METHOD 09/15/2024 1:11 PM EST [facility] Blood Venous blood specimen / Unknown Venipuncture / Unknown 09/15/2024 10:40 AM EST 09/15/2024 11:17 AM EST us Gage Perez MD LAB BLOOD ORDERABLE S Final Result [facility] [address] [place] [address], [place] [phone] * (ABNORMAL) Ferritin (09/15/2024 10:40 AM EST) [facility] Ferritin 282(H) 8 - 252 ng/mL LAB CHEMISTRY METHOD 09/15/2024 1:11 PM EST [facility] Blood Venous blood specimen / Unknown Venipuncture / Unknown 09/15/2024 10:40 AM EST 09/15/2024 11:17 AM EST Gage Perez MD LAB BLOOD ORDERABLE S Final Result [facility] [address] [place] [address], [place] [phone] * Annual BMP Blood Test (07/07/2021) [facility] Annual BMP Blood Test Abstracted Historical Provider HEALTH MAINTENANCE Final Result * (ABNORMAL) Lipid panel (07/07/2021) [facility] LDL/HDL Ratio 6(A) 0 - 4 Triglycerides 114 0 - 150 mg/dL Cholesterol 270(A) 0 - 200 mg/dL HDL 47 >=40 mg/dL LDL Cholesterol 201(A) 0 - 100 mg/dL Blood Venous blood specimen / Unknown Historical Provider LAB BLOOD ORDERABLES Edwina l Result * Hepatitis C Screening (11/23/2013) [facility] Hepatitis C Screening Abstracted us Historical Provider HEALTH MAINTENANCE Final Result * Colonoscopy (09/21/2008) Colonoscopy No Interpretation , Abstracted Anatomical Region Laterality Modality Other us Historical Provider HEALTH MAINTENANCE Final Result from Last 3 Months or Most Recently Relevant to Health Maintenance Insurance [employer] MEDICARE MEDICAID - [place] Care Teams Behavioral Sciences Instructor Relationship Specialty Start Date End Date Josué Richards MD [address] [place] [address] PCP - General Internal Medicine 09/15/24
--- OUTSIDE RECORDS SUMMARY | 2024-11-29 13:35 | XMS_ITS | Clinical Summary ---
Author Organization [facility] Address [address] [facility] [address] [place] [address] Phone Care Team Providers Care Fretted Instrument Repairer Name Role Phone Singh Brown NP Primary Care Provider [phone] Allergies Active Allergy Reactions Criticality Noted Date [...] Medicaid [place] Medicaid [place] Care Teams Fretted Instrument Repairer Relationship Specialty Start Date End Date Singh Brown NP [address] [place] [address] PCP - General Nurse Practitioner 03/12/23
--- OUTSIDE RECORDS SUMMARY | 2024-11-29 13:35 | XMS_ITS ---
Author Organization [facility] Address [address] [address] Care Team Providers Care Inspectors And Regulatory Officers Name Role Phone Singh Brown CNP Primary Care Provider Unavaila ELIANE Suarez Unavailable [phone] REASON FOR VISIT FYI Encounters Encounter Location Date Provider Diagnosis [facility] [address] [address] 11/21/2024 ELIANE VAN Plan Of Treatment No Information Progress Notes * Ni BESTDOB:1955 (69 yo F)Acc No.[id number]:11/21/2024 Patient:?ESTEPHANIAKeyon OLIVASia :1955???Age:69 Y???Sex:Female Phone: Address:[address] [place] [address], [phone] * true * Date:? Generated for Juwani jane/Patti/eTransmitting on:?11/29/2024 11:39 AM EDT
--- OUTSIDE RECORDS SUMMARY | 2024-11-29 13:35 | XMS_ITS ---
Author Organization [facility] Address [address] [facility] [address] [place] [address] Care Team Providers Care Net Mender Name Role Phone Singh Brown CNP Primary Care Provider Unavaila DOROTHEA Suarez Unavailable [phone] Allergies Allergen (clinical drug ingredient) Drug/Non Drug Allergy documented on EMR Reaction Allergy Type Onset Date Status amlodipine Amlodipine edema Drug Allergy Activ e cyclobenzaprine Cyclobenzaprine Unknown Drug Allergy Active Non-steroidal anti-inflammatory agent (FN) NSAIDs hypertension Drug Allergy Active Results Component Value Reference Range Notes TSH reflex to [id number] Reviewed date:09/22/2024 09:21:56 AM Interpretation: Performing Lab:[facility], [employer] [place], [place], Phone - [phone], Director - Domi Notes/Report: TSH 2.350 0.450-4.500 uIU/mL DONTA by IFA Rfx Titer/Pattern -[id number] Reviewed date:09/22/2024 09:21:39 AM Interpretation: Performing Lab:[facility], [employer], [employer], Phone - [phone], Director - Luz Marinadry Notes/Report: DONTA by IFA Rfx Titer/Pattern Negative Negative <1:80 Borderline 1:80 Positive >1:80 ICAP nomenclature: AC-0 For more information about Hep-2 cell patterns use ANApatterns.org, the official website for the International Consensus on Antinuclear Antibody (DONTA) Patterns (ICAP). Anti-CCP Ab, IgG/IgA-[id number] Reviewed date:09/22/2024 09:21:24 AM Interpretation: Performing Lab:[facility], [employer], [employer], Phone - [phone], Director - Luz Marinadry Notes/Report: Anti-CCP Ab, IgG/IgA 4 0-19 units Negative <20 Weak positive 20 - 39 Moderate positive 40 - 59 Strong positive >59 Lyme Disease Serology w/Refl ex-[id number] Reviewed date:09/22/2024 09:22:05 AM Interpretation: Performing Lab:[facility], Phone - [phone], Director - Domi Notes/Report: Lyme Total Antibody [...] days is recommended. Thyroid Peroxidase (TPO) Ab- [id number] Reviewed date:09/22/2024 09:21:50 AM Interpretation: Performing Lab:[facility] [address], Phone - [phone], Director Minh Duron Notes/Report: Thyroid Peroxidase (TPO) Ab 15 0-34 IU/mL Rheumatoid Factor (RF)-79128 2 Reviewed date:09/22/2024 09:21:45 AM Interpretation: Performing Lab:[address], Phone - [phone], Director Minh Duron Notes/Report: Rheumatoid Factor (RF) <10.0 <14.0 IU/mL Uric Acid-119344 Reviewed date:10/02/2024 10:20:08 AM Interpretation: [facility]forming [facility], Phone - [phone], Director - Domi Notes/Report: Uric Acid 7.7 3.0-7.2 mg/dL Therapeutic ta rget for gout patients: <6.0 ESR Reviewed date:09/20/2024 07:37:20 AM Interpretation:26 Performing Lab: Notes/Report: 26 REASON FOR VISIT Lt foot pain Medications [...] Problem Status W/U Status Risk Notes Problem 6143610 Inflammatory arthritis (M19.90) Active confirmed Problem 572543452 Primary osteoarthritis, left ankle and foot (M19.072) Active confirmed Vital Signs Temperature 97.1 degrees Fahrenheit 09/13/19 25 Heart Rate 65 /min 09/13/2024 Respiratory Rate 16 /min 09/13/2024 Height 5ft 3in in 09/13/2024 Weight 189.0 lbs 09/13/2024 BMI 33.48 kg/m2 09/13/2024 Encounters Encounter Location Date Provider Diagnosis [facility] [address] [facility] [address] [place] [address] 09/13/2024 DOROTHEA REHAN Inflammatory arthritis M19.90 ; [...] plan, and lab work was sent to [facility] per the patient's request. I will contact [...] plan, and lab work was sent to [facility] per the patient's request. I will contact [...] Notes * Zahraa BEST:1955 (68 yo F)Acc No.[id number]:09/13/2024 Consult note Patient:Ni GOODEN Provider:?Dorothea Van DPM :1955???Age:68 Y???Sex:Female D ate:09/13/2024 Phone: Address:[address] [place] [address], [phone] Pcp:Singh Brown CNP Subjective: * Chief Complaints: [...] - M79.672??? Plan: * Treatment: ?LAB: Uric Acid-653633* send to [facility] [address] in [facility] 09/13/2024 02:46:02 PM EST > [place] [facility] [phone] ?LAB: Rheumatoid Factor (RF)-641677* send to [facility] on [address] in [facility] 09/13/2024 02:46:02 PM EST > Faxed lab order to [phone] ?LAB: Thyroid Peroxidase (TPO) Ab-[id number]* send to [facility] on [address] in [facility] 09/13/2024 02:46:02 PM EST > Faxed lab order to [phone] ?LAB: Lyme Disease Serology w/Reflex-[id number]* send to [facility] on [address] in [facility] 09/13/2024 02:46:02 PM EST > Faxed lab order to [phone] ?LAB: Anti-CCP Ab, IgG/IgA-[id number]* send to [facility] on [address] in [facility] 09/13/2024 02:46:02 PM EST > Faxed lab order to [facility] [address], [place] [phone] ?LAB: DONTA by IFA Rfx Titer/Pattern-[id number]* send to [facility] on [address] [place] 09/13/2024 02:46:02 PM EST > Faxed lab order to [facility] [address], [place] [phone] ?LAB: TSH reflex to [id number]* send to [facility] on [address] [place] 09/13/2024 02:46:02 PM EST > Faxed lab order to [facility] [address], [place] [phone] ?Imaging: X ray : Foot, left 3v* [...] plan, and lab work was sent to [facility] per the patient's request. I will contact [...] Erosive and degenerative changes seen. * Procedure Codes:?59165 X-RAY EXAM OF FOOT 3 Views, Modifiers: LT * Follow Up:?after testing * Billing Information: * Visit Code:? 57669 Office Visit, New Pt., Level 4. * Procedure Codes:? 62600 X-RAY EXAM OF FOOT 3 Views. Modifiers: LT * Sign off status: Completed true * Provider:?Dorothea Van DPM Date:? 09/13/2024 Generated for Jeannette lara/Patti/Lindaitting on:?11/29/2024 11:39 AM EDT History and Physical Notes * HPI [...]
--- OUTSIDE RECORDS SUMMARY | 2024-11-29 13:35 | XMS_ITS | Encounter Summary ---
Author Organization [facility] Address [address] [facility] [address] [place] [address] Phone Care Team Providers Care Assistant Signal Maintainer Name Role Phone Singh Brown NP Primary Care Provider [phone] Encounter Details Date Type Department Care Team (Late st Contact Info) Description 10/01/2022 Office Communication [facility] [address] [facility] [address] [place] [address] Tk Hernandez MD Social History [...] on filedocumented in this encounter Care Teams Assistant Signal Maintainer Relationship Specialty Start Date End Date Singh Brown NP [address] [place] [address] PCP - General Nurse Practitioner 03/12/23 documented as of this encounter
--- OUTSIDE RECORDS SUMMARY | 2024-11-29 13:35 | XMS_ITS | Patient Health Record ---
Author Organization [facility] Address [address] [facility] [address] [place] [address] Care Team Providers Care Warp Splitter Name Role Phone Singh Brown CNP Primary Care Provider Unavaila ELIANE Suarez Unavailable [phone] Allergies Allergen (clinical drug ingredient) Drug/Non Drug Allergy documented on EMR Reaction Allergy Type Onset Date Status amlodipine Amlodipine edema Drug Allergy Activ e cyclobenzaprine Cyclobenzaprine Unknown Drug Allergy Active Non-steroidal anti-inflammatory agent (FN) NSAIDs hypertension Drug Allergy Active Results Component Value Reference Range Notes ESR Reviewed date:09/20/2024 07:37:20 AM Interpretation:26 Performing Lab: Notes/Report: 26 Uric Acid-[id number] Reviewed date:10/02/2024 10:20:08 AM Interpretation: Performing Lab:[facility], [address] [place] [address], Phone - [phone], Director - Domi Notes/Report: Uric Acid 7.7 3.0-7.2 mg/dL Therapeutic ta rget for gout patients: <6.0 Rheumatoid Factor (RF)-91342 2 Reviewed date:09/22/2024 09:21:45 AM Interpretation: Performing Lab:[facility], [email or web address], Phone - [phone], Director - Luz Marinadry Notes/Report: Rheumatoid Factor (RF) <10.0 <14.0 IU/mL Thyroid Peroxidase (TPO) Ab- [id number] Reviewed date:09/22/2024 09:21:50 AM Interpretation: Performing Lab:[facility], [address] [facility], Phone - [phone], Director - Domi Notes/Report: Thyroid Peroxidase (TPO) Ab 15 0-34 IU/mL Lyme Disease Serology w/Refl ex-[id number] Reviewed date:09/22/2024 09:22:05 AM Interpretation: Performing Lab:[facility] [address], Phone - [phone], Director - Domi Notes/Report: Lyme Total Antibody [...] to 14 days is recommended. Anti-CCP Ab, IgG/IgA-[id number] Reviewed date:09/22/2024 09:21:24 AM Interpretation: Performing Lab:[facility] [address], Phone - [phone], - Domi Notes/Report: Anti-CCP Ab, IgG/IgA 4 0-19 units Negative <20 Weak positive 20 - 39 Moderate positive 40 - 59 Strong positive >59 DONTA by IFA Rfx Titer/Pattern -[id number] Reviewed date:09/22/2024 09:21:39 AM Interpretation: Performing Lab:[facility] [address], [address] [place] [address], Phone - [phone], Director - Domi Notes/Report: DNOTA by IFA Rfx Titer/Pattern Negative Negative <1:80 Borderline 1:80 Positive >1:80 ICAP nomenclature: AC-0 For more information about Hep-2 cell patterns use ANApatterns.org, the official website for the International Consensus on Antinuclear Antibody (DONTA) Patterns (ICAP). TSH reflex to [id number] Reviewed date:09/22/2024 09:21:56 AM Interpretation: Performing Lab:[facility] [address], Phone - [phone], Director - Domi Notes/Report: TSH 2.350 0.450-4.500 uIU/mL Sedimentation Rate-Westergre n-372162 Reviewed date:09/22/2024 09:21:12 AM Interpretation: Performing Lab:[facility] [address], Phone - [phone], Director Minh Duron Notes/Report: Sedimentation Rate-Westergren 26 0-40 mm/hr Reason [...] Problem Status W/U Status Risk Notes Problem 336251935 Primary osteoarthritis, left ankle and foot (M19.072) Active confirmed Problem 4442931 Inflammatory arthritis (M19.90) Active confirmed Vital Signs Heart Rate 65 /min 09/13/2024 Temperature 97.1 degrees Fahrenheit 09/13/2024 Respiratory Rate 16 /min 09/13/2024 Height 5ft 3in in 09/13/2024 Weight 189.0 lbs 09/13/2024 BMI 33.48 kg/m2 09/13/2024 Encounters Encounter Location Date Provider Diagnosis [facility] [address] [address] 09/13/2024 ELIANE VAN Inflammatory arthritis M19.90 ; Primary osteoarthritis, left ankle and foot M19.072 and Pain in left foot M79.672 [facility] [address] [address] 09/29/2024 ELIANE VAN [facility] [address] [address] 11/21/2024 ELIANE VAN Assessments Encounter Date Diagnosis [...] Insured Coverage Start Date Coverage End Date [facility] [address] [address] [place] [address] [id number] Ni Lopez Self - patient is the insured Medical (General) History Medical History History ICD Code allergic rhinitis cervical spine degeneration- noted from [facility] ED visit 08/2015; mild C4-C5 ant subluxation [...]
== END 2024-11-29 11:30 | disposition home or self-care (01) ==
LOC: HO.HKAS 11:15
PROVIDERS: PCP Nurse Practitioner; Visit Provider Internal Medicine Hypertension Specialist
DX: I12.9 Hypertensive chronic kidney disease with stage 1 through stage 4 chronic kidney disease, or unspecified chronic kidney disease (principal); N18.9 Chronic kidney disease, unspecified
CPT/HCPCS: 99214

== ENCOUNTER → 2024-11-29 11:14 | Outpatient (BNVA) | payer MEDICARE, MEDICAID, SELFPAY | PROVIDERS: PCP Nurse Practitioner; Visit Provider Internal Medicine Hypertension Specialist | DX: I12.9 Hypertensive chronic kidney disease with stage 1 through stage 4 chronic kidney disease, or unspecified chronic kidney disease (principal); N18.9 Chronic kidney disease, unspecified | CPT/HCPCS: 99212 ==

== ENCOUNTER 2025-06-05 14:42 | Outpatient (REF) | payer MEDICARE, MEDICAID, SELFPAY ==
[2025-06-05 18:20] LABS: Anion Gap 13 (12-20); Blood Urea Nitrogen 13 mg/dL (9-16); Calcium 9.4 mg/dL (8.4-10.2); Carbon Dioxide 25 mmol/L (22-29); Chloride 108 mmol/L (96-108); Estimated Glomerular Filt Rate 35; Potassium 4.3 mmol/L (3.3-5.1); Sodium 142 mmol/L (135-145)
== END 2025-06-05 14:43 | disposition home or self-care (01) ==
LOC: HO.HKASLDS 14:42
PROVIDERS: PCP Nurse Practitioner; Visit Provider Internal Medicine Hypertension Specialist
DX: I12.9 Hypertensive chronic kidney disease with stage 1 through stage 4 chronic kidney disease, or unspecified chronic kidney disease (principal); N18.9 Chronic kidney disease, unspecified
CPT/HCPCS: 36415; 80048

== ENCOUNTER 2025-06-06 11:41 | Outpatient (AMB) | payer MEDICARE, MEDICAID, SELFPAY ==
--- NOTE | 2025-06-06 11:47 | HO.NEPHOV ---
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 Operator Required: No Accompanied by: Self / Same As Patient Allergies ibuprofen Allergy (Mild, Verified 06/06/25 11:50) high blood pressure losartan Adverse Reaction (Mild, Verified 06/06/25 11:50) Muscle Pain lisinopril Adverse Reaction (Unknown, Verified 06/06/25 11:50) Unknown Aspirin Allergy (Mild, Uncoded 11/29/24 11:05) Hives Medication List - Last Reconciled 06/06/25 by Tushar Tripathi MD cholecalciferol (vitamin D3) 25 mcg PO DAILY PRN isosorbide mononitrate ER 60 mg PO QAM nifedipine ER 30 mg PO DAILY nitroglycerin mg sublingual pravastatin 40 mg PO DAILY HPI Comments Details: 67 yr old woman with HTN Here for follow up She is taking HCTX 25 mg half a tab;Reportedly home BP is around 139 mmHG systolic 04/05/24 She stopped Aldactone;No new issues 11/29/24 Was in ER last night. Had chest discomfort- Work up was unremarkable 06/06/25 Over all BP well controlled PENDING SALE TO [facility] Medical History Rheumatoid aortitis High cholesterol Social History Household Members: Children Alcohol intake: never Patient Tobacco Use Status: Never used Tobacco Physical Exam Vital Signs: Last Vital Signs Pulse 65 06/06/25 11:48 BP 110/80 06/06/25 11:48 Pulse Ox 99 06/06/25 11:48 Oxygen Delivery Method Room Air 06/06/25 11:48 BMI result Body Mass Index 30.9 Results Reviewed Nephrology Results: Hgb, (12.0-16.0) 11.9 g/dl L 11/28/24 WBC, (4.8-10.8) 5.1 X10*3/uL 11/28/24 Plt Count, (160-400) 210 X10*3/uL 11/28/24 Sodium, (135-145) 142 mmol/L 06/05/25 Potassium, (3.3-5.1) 4.3 mmol/L 06/05/25 Chloride, (96-108) 108 mmol/L 06/05/25 Carbon Dioxide, (22-29) 25 mmol/L 06/05/25 BUN, (9-16) 13 mg/dL 06/05/25 Creatinine, (0.5-1.4) 1.48 mg/dL H 06/05/25 Calcium, (8.4-10.2) 9.4 mg/dL 06/05/25 Assessment & Plan Assessment & Plan (1) HTN (hypertension): Code(s): I10 - Essential (primary) hypertension Category: Medical (2) CKD (chronic kidney disease): Code(s): N18.9 - Chronic kidney disease, unspecified Category: Medical Plan CKD 3 Creatinine is stable Avoid nephrotoxins BP better controlled Will follow Cr and K Discussed low salt diet and weight loss NO changes were made Orders: Orders Complete Blood Count no Diff Today I10 - Essential (primary) hypertension Creatinine Urine Today I10 - Essential (primary) hypertension Total Protein Urine Random Today I10 - Essential (primary) hypertension Basic Metabolic Panel 6 Months I10 - Essential (primary) hypertension UA and rflx microscopic Today I10 - Essential (primary) hypertension Coding Level of Care Code Est Pt Level 4 (52675) Diagnoses HTN (hypertension) I10 CKD (chronic kidney disease) N18.9
[2025-06-06 11:48] VITALS: BP 110/80; PULSE 65; O2SAT 99; BMI 30.9
--- OUTSIDE RECORDS SUMMARY | 2025-06-06 16:16 | XMS_ITS | Clinical Summary ---
Author Organization [facility] Address [address] [facility] [address] [place] [address] Phone Care Team Providers Care Baker Chef Name Role Phone Singh Brown NP Primary Care Provider [phone] Allergies No known active allergies Medications isosorbide mononitrate (IMDUR) 60 MG 24 hr tablet Take 60 mg by mouth daily. Active pravastatin (PRAVACHOL) 40 MG tablet Take 40 mg by mouth daily. Active NIFEdipine (PROCARDIA XL) 30 MG 24 hr tablet Take 30 mg by mouth daily. Active prasugreL HCl (EFFIENT) 10 mg Tab Take 1 tablet (10 mg total) by mouth daily. 30 tablet 6 05/31/2025 Active Encounters Date Type Department Care Team Description 05/31/2025 3:00 PM EDT Office Visit [facility], Cardiology [address] [place] [address] Shawnee Bravo MD CAD (coronary artery disease) (Primary Dx); Hyperlipidemia, unspecified hyperlipidemia type; Coronary artery disease involving siletz tribe coronary artery of siletz tribe heart without angina pectoris; NSTEMI (non-ST elevation myocardial infarction); Essential hypertension; Family history of coronary artery disease from Last 3 Months Social History Tobacco Use Types Packs/Day Years Used Date Smoking Tobacco: Never Assessed Education Answer Date Recorded Are you interested in more education? Not on corrine e 11/16/2024 Are you concerned about learning? Not on file 11/16/2024 No 11/16/2024 No 11/16/2024 Digital Access Answer Date Recorded No 11/16/2024 No 11/16/2024 Reliable internet access at home? Not on file 11/16/2024 Device with a working camera? Not on file Comments Unknown Sex and Gender Information Value Date Recorded Sex Assigned at Not on file Legal Sex Female 11:11 AM EDT Gender Identity Not on file Sexual Orientation Not on file Last Filed Vital Signs Vital Sign Reading Time Taken Comments Blood Pressure 140/78 05/31/2025 3:31 PM EDT Pulse 63 05/31/2025 3:31 PM EDT Temperature - - Respiratory Rate - - Oxygen Saturation - - Inhaled Oxygen Concentration - - Weight 81.6 kg (180 lb) 05/31/2025 3:31 PM EDT Height 160 cm (5' 3 ) 05/31/2025 3:31 PM EDT Body Mass Index 31.89 05/31/2025 3:31 PM EDT Plan of Treatment Upcoming Encounters Date Type Department Care Team (Late st Contact Info) Description 08/08/2025 11:00 AM EST Telemedicine [facility] Neurology [address] [place] [address] Chay Garcia MD [address] [place] [address] [email or web address] Maintenance Due Date Last Done Comments Adult Td,Tdap Booster 1955 DEPRESSION SCREENING 1969 SMOKING Hx and SMOKELESS TOB ACCO SCREENING 1970 HEPATITIS C SCREENING 11/13/1975 LIPID PANEL 11/13/1975 SCREENING FOR DIABETES 1992 MAMMOGRAM 1997 COLOGUARD 2002 COLONOSCOPY 2002 COLORECTAL CANCER SCREENING 2002 FIT TEST 2002 FOBT 2002 SIGMOIDOSCOPY 2002 VIRTUAL COLONOSCOPY 2002 PNEUMOCOCCAL VACCINES (50+ y ears) (1 of 1 - PCV) 11/13/2007 ZOSTER VACCINES (1 of 2) 11/13/2007 OSTEOPOROSIS SCREENING INITI AL (ONE-TIME) 2022 INFLUENZA VACCINE (#1) 2025 COVID-19 VACCINE ( - 2024-2 6 season) 2025 RSV VACCINE (1 - 1-dose 75+ series) 2032 HEPATITIS A VACCINES Aged Out No long er eligible based on patient's age to complete this topic HIB VACCINES Aged Out No longer eligi ble based on patient's age to complete this topic MENINGOCOCCAL VACCINES (ACWY) Aged Out No longer eligible based on patient's age to complete this topic MENINGOCOCCAL VACCINES (B) Aged Out N o longer eligible based on patient's age to complete this topic Medical Devices Not on file Procedures Procedure Name Priority Date/Time Associated Diagnosis Comments ECG 12-LEAD Routine 05/31/2025 3:27 PM EDT CAD (coronary artery disease) from Last 3 Months Results * ECG 12-LEAD (05/31/2025 3:27 PM EDT) Ventricular Rate EKG/MIN 63 BPM [facility] Atrial Rate 63 BPM [facility] PA Interval 178 ms [facility] QRS Duration 104 ms [facility] QT Interval 396 ms [facility] QTC Interval 405 ms [facility] P [place] 24 degrees [facility] R Wave [place] -54 degrees [facility] T Wave [place] 7 degrees [facility] 05/31/2025 3:27 PM EDT Narrative [facility] - 06/05/2025 9:28 AM EDT NORMAL SINUS RHYTHM LEFT ANTERIOR FASCICULAR BLOCK MODERATE VOLTAGE CRITERIA FOR LVH, MAY BE NORMAL VARIANT ( R in aVL , Adrian product ) CANNOT RULE OUT INFERIOR INFARCT (MASKED BY FASCICULAR BLOCK?) , AGE UNDETERMINED POOR R WAVE PROGRESSION CANNOT RULE OUT ANTEROLATERAL MYOCARDIAL INFARCTION , AGE UNDETERMINED ABNORMAL ECG NO PREVIOUS ECGS AVAILABLE us Shawnee Bravo MD ECG ORDERABLES Final Result [facility] from Last 3 Months Insurance [employer] [facility]PLAC[facility] [facility]PLAC[facility] [facility] REPLAC[facility] [employer] [facility] MEDIC[facility] REPLACEMENT [place] [address] [employer] [facility] REPLACEMENT Member Subscriber Plan / Payer (Ef fective 2024-Present) Name:Ni Lopez Relation to Subscriber:Self Name:Ni Lopez Payer ID:[id number] (NAIC) Type:Medicare Address: [place] [id number] [place], [place] [address]B [facility] REPLAC[facility] Member Subscriber Plan / Payer (Ef fective 2024-Present) Name:Ni Lopez Relation to Subscriber:Self Name:JohnNi Payer ID:[id number] (NAIC) Type:Medicare Address: [place] [id number] Care Teams Baker Chef Relationship Specialty Start Date End Date Singh Brown NP [address] [place] [id number] PCP - General Nurse Practitioner 11/16/24 Additional Source Comments The information contained in this document represents components of the legal health record. It is not the complete legal health record.[facility]
--- OUTSIDE RECORDS SUMMARY | 2025-06-06 16:16 | XMS_ITS | Clinical Summary ---
Author Organization [facility] Address [address] [place] [address] Care Team Providers Care Drink Mixer Name Role Phone Dexter Burt Primary Care Provider [phone] Source Comments PLEASE NOTE, if this patient [...] Diagnosed Date Stage 3a chronic kidney disease 10/08/2022 Family history of coronary artery disease 2022 [...] Date Resolved Date Allergic rhinitis 10/08/2022 10/08/2022 Encounters Date Type Department Care Team Description 05/21/2025 Dental Interim Note [facility] [address] [place] [phone] Kimmie Avendano Y 05/17/2025 1:40 PM EDT Office Visit [facility] [address] [place] [phone] Kimmie Avendano Y 04/19/2025 11:00 AM EDT Office Visit [facility] [address] [place] [phone] Martina Odonnell from Last 3 Months Immunizations Immunization Administration Dates Next Due INFLUENZA, SEASONAL, INJECTABLE 08/28/2015 TDAP 03/21/2010,03/21/2010 Td (adult),2 Lf tetanus toxo id (TDVAX), preservative free 09/21/2019 Social History Tobacco Use Types Packs/Day Years Used Date Smoking Tobacco: Former Cigarettes Smokeless Tobacco: Never Tobacco Cessation:Counseling Given: Not Answered Social Connections Answer Date Recorded Social Connections [...] Sign Reading Time Taken Comments Blood Pressure 129/87 05/17/2025 2:01 PM EDT Pulse 62 05/17/2025 2:01 PM EDT Temperature - - Respiratory Rate - - Oxygen Saturation - - Inhaled Oxygen Concentration - - Weight - - Height - - Body Mass Index - - Plan of Treatment Health Maintenance Due Date Last Done Comments Dental FMX/Pano 1957 Dental Prophy 1957 Diabetes Screening 1955 Hepatitis C Screening 1955 Breast Cancer Screening (Mammogram) 1997 CT Colonography 2002 Colonoscopy 2002 Flexible Sigmoidoscopy 2002 Imm-Pneumococcal 50+ (1 of 1 - PCV) 11/13/2007 Imm-Zoster, Recombinant (1 of 2) 11/13/2007 Bone Density Screening 2022 Falls Prevention 2022 Lipid Screening 07/07/2024 07/07/2021 Alcohol and Drug Screen 08/16/2024 Depression Annual Screen 08/16/2024 FIT/gFOBT 11/11/2024 2023, 2023 [id number] ( - season) 2025 Imm-Influenza (#1) 2025 08/28/2015 Tobacco Screening 05/17/2026 05/17/2025 Dental Examination 05/19/2026 05/17/2025 Dental Perio Charting 05/19/2026 05/17/2025 Colorectal Cancer Screening 11/11/2026 Fecal DNA 11/11/2026 2023, 2023 Imm-DTaP/Tdap/Td (4 - Td or Tdap) 09/21/2029 09/21/2019, 03/21/2010, 03/21/2010 Procedures Procedure Name Priority Date/Time Associated Diagnosis Comments DENTAL CASE MANAGEMENT - MOTIVATIONAL INTV Routine 05/17/2025 1:40 PM EDT Caries Encounter for dental examination and cleaning with abnormal findings Stage 3 grade C generalized periodontitis per AAP/EFP 2017 classification COMP ORAL EVALUATION - NEW/ESTABLISHED PATIENT Routine 05/17/2025 1:40 PM EDT Caries Encounter for dental examination and cleaning with abnormal findings Stage 3 grade C generalized periodontitis per AAP/EFP 2017 classification CARIES RISK ASSESSMENT & DOC FINDING HIGH RISK Routine 05/17/2025 1:40 PM EDT Caries Encounter for dental examination and cleaning with abnormal findings Stage 3 grade C generalized periodontitis per AAP/EFP 2017 classification NUTRITIONAL COUNSELING CONTROL OF DENTAL DISEASE Routine 05/17/2025 1:40 PM EDT Caries Encounter for dental examination and cleaning with abnormal findings Stage 3 grade C generalized periodontitis per AAP/EFP 2017 classification ORAL HYGIENE INSTRUCTIONS Routine 05/17/2025 1:40 PM EDT Caries Encounter for dental examination and cleaning with abnormal findings Stage 3 grade C generalized periodontitis per AAP/EFP 2017 classification ORAL CANCER SCREENING Routine 05/17/2025 1:40 PM EDT Caries Encounter for dental examination and cleaning with abnormal findings Stage 3 grade C generalized periodontitis per AAP/EFP 2017 classification CASE PRESENTATION SUBS DTL & EXTENSIVE TX PLN Routine 05/17/2025 1:40 PM EDT Encounter for dental examination and cleaning with abnormal findings 5 CROWN - PORCELAIN/CERAMIC Routine 05/17/2025 12:00 AM EDT 5 ROOT CANAL - WISDOM (NO BILLABLE) Routine 05/17/2025 12:00 AM EDT 18,19,28,30,31 MANDIBULAR PARTIAL DENTURE - RESIN BASE Routine 05/17/2025 12:00 AM EDT 4,2,14,15 MAXILLARY PARTIAL DENTURE - RESIN BASE Routine 05/17/2025 12:00 AM EDT 8 ML COMPOSITE - WISDOM (NON BILLABLE) Routine 05/17/2025 12:00 AM EDT 3 O AMALGAM - WISDOM (NON BILLABLE) Routine 05/17/2025 12:00 AM EDT 29 MO AMALGAM - WISDOM (NON BILLABLE) Routine 05/17/2025 12:00 AM EDT from Last 3 Months [place] Care Teams Drink Mixer Relationship Specialty Start Date End Date Dexter Burt PA [address] [place] [address] PCP - General FAMILY MEDICINEBETI 05/06/22
--- OUTSIDE RECORDS SUMMARY | 2025-06-06 16:16 | XMS_ITS | Clinical Summary ---
Author Organization [facility] Address [address] [place] [address] Care Team Providers Care Nuclear Process Engineer Name Role Phone Mikael Alfredo MD Primary Care Provider [phone] Encounters Date Type Department Care Team Description 05/10/2025 2:10 PM EDT Ancillary Procedure [facility] Radiology [address] [place] [address] Provider, File Room 05/10/2025 2:10 PM EDT Ancillary Procedure [facility] Radiology [address] [place] [address] Provider, File Room 05/07/2025 Transcribe Orders GENERIC EXTERNAL DATA DEPARTMENT Mikael Carrion MD Stenosis of right vertebral artery (Primary Dx); Lightheadedness 04/11/2025 Orders Only [facility] INBD INTERFACE [address] [place] [address] Provider, MD Olive from Last 3 Months Social History Tobacco Use Types Packs/Day Years Used Date Smoking Tobacco: Never Assessed Comments Unknown Sex and Gender Information Value Date Recorded Sex Assigned at Female 05/09/2025 2:27 PM EDT Legal Sex Female 11:15 AM EDT Gender Identity Female 05/09/2025 2:27 PM EDT Sexual Orientation Choose not to disclose 2024 2:27 PM EDT Plan of Treatment Upcoming Encounters Date Type Department Care Team (Late st Contact Info) Description 06/20/2025 2:00 PM EST Office Visit [facility] [address] [facility] [address] [place] [phone] Mikael Carrion MD [address] [facility] [address] [place], [place] [phone] Johny Mcclain MD [address] [place] [address] [address] [place] [id number] Health Maintenance Due Date Last Done Comments Advance Care Planning 1955 Hepatitis C Virus Screening 1955 DTaP/Tdap/Td Vaccines (1 - Tdap) 1976 Mammogram 1997 Colonoscopy 2002 Pneumococcal Vaccines 50+ (1 of 1 - PCV) 11/13/2007 RSV Vaccine 50 years and old er and Patients (1 - Risk 50-74 years 1-dose series) 11/13/2007 Zoster (Shingles) Vaccine (1 of 2) 11/13/2007 DXA Bone Density (Females,Ag es 65 and older) 2022 Influenza Vaccine 03/16/2025 08/28/2015 COVID-19 Vaccine (2023-2 5 season) 2025 Hepatitis B Vaccines Aged Out No long er eligible based on patient's age to complete this topic Procedures Procedure Name Priority Date/Time Associated Diagnosis Comments MR HEAD ARCHIVE FOR REFERENCE ONLY Routine 05/10/2025 2:[address] HEAD ARCHIVE FOR REFERENCE ONLY Routine 05/10/2025 2:09 PM EDT LIPID PANEL WITH NONHDL Routine 04/11/2025 8:15 AM EDT from Last 3 Months Results * MR Head Archive for Reference Only (05/10/2025 2:09 PM EDT) Narrative CANDIE - 05/10/2025 2:09 PM EDT This study has been auto finalized and does not contain a result. us File Room Provider IMG DIGITIZE FILMS Final Resu lt CANDIE [phone] * CT Head Archive for Reference Only (05/10/2025 2:09 PM EDT) Narrative CANDIE - 05/10/2025 2:09 PM EDT This study has been auto finalized and does not contain a result. us File Room Provider IMG DIGITIZE FILMS Final Resu lt Performing Organization Address City/[facility]/ZIP Co de Phone Number CANDIE [phone] * (ABNORMAL) Lipid panel with nonHDL (04/11/2025 8:15 AM EDT) Cholesterol, Total 232(H) <200 mg/dL [facility] Cholesterol, HDL 48(L) > OR = 50 mg/dL [facility] Triglycerides 72 <150 mg/dL [facility] LDL Cholesterol 167(H) mg/dL (calc) [facility] Comment: Reference range: <100 Desirable range <100 mg/dL for primary prevention; <70 mg/dL for patients with CHD or diabetic patients with > or = 2 CHD risk factors. LDL-C is now calculated using the Johny-Julee calculation, which is a validated novel method providing better accuracy than the Friedewald equation in the estimation of LDL-C. Johny SS et al. INES. 2013;310(19): 6764-5742 (http://education.Tempronics/faq/IWS957) Cholesterol/HDL Ratio 4.8 <5.0 (calc) [facility] Non HDL Chol. (LDL+VLDL) 184(H) <130 mg/dL (calc) [facility] Comment: For patients with diabetes plus 1 major ASCVD risk factor, treating to a non-HDL-C goal of <100 mg/dL (LDL-C of <70 mg/dL) is considered a therapeutic option. 04/11/2025 8:15 AM EDT 04/11/2025 8:15 AM EDT Narrative [facility] - 04/11/2025 10:50 PM EDT FASTING:YES FASTING: YES Ordered by External Provider. [phone], MIKAEL ALFREDO, us External Provider LAB BLOOD ORDERABLES Final Result Performing Organization Address [facility]/ZIP Co de Phone Number [facility] [address] [place] [address] from Last 3 Months Insurance [facility] MEDICARE MEDICARE PART A & B Care Teams Nuclear Process Engineer Relationship Specialty Start Date End Date Mikael Alfredo MD [address] [place] [address] PCP - General Cardiovascular Disease 05/07/25
--- OUTSIDE RECORDS SUMMARY | 2025-06-06 16:16 | XMS_ITS | Patient Health Record ---
Author Organization [facility] Address [address] [place] [address] Care Team Providers Care Dog Raiser Name Role Phone Singh Brown CNP Primary Care Provider UnavailELIANE Grant Unavailable [phone] Allergies Allergen (clinical drug ingredient) Drug/Non Drug Allergy documented on EMR Reaction Allergy Type Onset Date Status amlodipine Amlodipine edema Drug Allergy Activ e cyclobenzaprine Cyclobenzaprine Unknown Drug Allergy Active Non-steroidal anti-inflammatory agent (FN) NSAIDs hypertension Drug Allergy Active Results Component Value Reference Range Notes Sedimentation Rate-Westergre n-[id number] Reviewed date:09/22/2024 09:21:12 AM Interpretation: Performing Lab:[facility] [place], [address], Phone - [phone], Director - Domi Notes/Report: Sedimentation Rate-Westergren 26 0-40 mm/hr TSH reflex to [id number] Reviewed date:09/22/2024 09:21:56 AM Interpretation: Performing Lab:[facility] [place], [address], Phone - [phone], Director - Luz Marinadrshelby Notes/Report: TSH 2.350 0.450-4.500 uIU/mL DONTA by IFA Rfx Titer/Pattern -[id number] Reviewed date:09/22/2024 09:21:39 AM Interpretation: Performing Lab:[facility] [place], [facility], [place], Phone - [phone], Director - Luz Marinadrshelby Notes/Report: DONTA by IFA Rfx Titer/Pattern Negative Negative <1:80 Borderline 1:80 Positive >1:80 ICAP nomenclature: AC-0 For more information about Hep-2 cell patterns use ANApatterns.org, the official website for the International Consensus on Antinuclear Antibody (DONTA) Patterns (ICAP). Anti-CCP Ab, IgG/IgA-[id number] Reviewed date:09/22/2024 09:21:24 AM Interpretation: Performing Lab:[facility], Phone - [phone], Director [facility] Notes/Report: Anti-CCP Ab, IgG/IgA 4 0-19 units Negative <20 Weak positive 20 - 39 Moderate positive 40 - 59 Strong positive >59 Lyme Disease Serology w/Refl ex-[id number] Reviewed date:09/22/2024 09:22:05 AM Interpretation: Performing Lab:[facility] [address], Phone - [phone], Director - [facility] Notes/Report: Lyme Total Antibody CHAY Negative Negative [...] days is recommended. Thyroid Peroxidase (TPO) Ab- [id number] Reviewed date:09/22/2024 09:21:50 AM Interpretation: Performing Lab:[facility] [address], Phone - [phone], [facility] [place]/Report: Thyroid Peroxidase (TPO) Ab 15 0-34 IU/mL Rheumatoid Factor (RF)-43884 2 Reviewed date:09/22/2024 09:21:45 AM Interpretation: [facility] [address], Phone - [phone], Director - [facility] Notes/Report: Rheumatoid Factor (RF) <10.0 <14.0 IU/mL Uric Acid-[id number] Reviewed date:10/02/2024 10:20:08 AM Interpretation: Performing Lab:[facility] [address], Phone - [phone], [facility] Notes/Report: Uric Acid 7.7 3.0-7.2 mg/dL Therapeutic ta rget for gout patients: <6.0 ESR Reviewed date:09/20/2024 07:37:20 AM Interpretation:26 Performing Lab: Notes/Report: 26 Reason For Referral No Information Medications Medication SIG (Take, Route, Frequency, Duration) Notes Start Date End Date Status Ferrous Sulfate 324 MG 1 tablet Orally Three times a Week Active Cyanocobalamin 500 MCG 1 tablet Orally O nce a day Active Atorvastatin Calcium 80 MG 1 tablet Orally Once a day every other day Active Colchicine 0.6 MG 1 tablet Orally once a day; Duration: 30 days 09/29/2024 Active Vitamin D3 25 [...] Problem Status W/U Status Risk Notes Problem Localized, primary osteoarthritis of the ankle and/or foot (333339450) Primary osteoarthritis, left ankle and foot (M19.072) Active confirmed Problem Inflammatory arthritis (7989728) Inflammatory arthritis (M19.90) Active confirmed Vital Signs Heart Rate 65 /min 09/13/2024 Temperature 97.1 degrees Fahrenheit 09/13/2024 Respiratory Rate 16 /min 09/13/2024 Height 5ft 3in in 09/13/2024 Weight 189.0 lbs 09/13/2024 BMI 33.48 kg/m2 09/13/2024 Encounters Encounter Location Date Provider Diagnosis [facility] [address] [address] 09/13/2024 ELIANE VAN Inflammatory arthritis M19.90 ; Primary osteoarthritis, left ankle and foot M19.072 and Pain in left foot M79.672 [facility] [address] [address] 09/29/2024 ELIANE VAN [facility] [address] [address] 11/21/2024 ELIANE VAN Assessments Encounter Date Diagnosis [...] Insured Coverage Start Date Coverage End Date [facility] [address] [place] [address] [id number] Ni Lopez Self - patient is the insured Medical (General) History Medical History History ICD Code allergic rhinitis cervical spine degeneration- noted from [facility] ED visit 08/2015; mild C4-C5 ant [...]
--- OUTSIDE RECORDS SUMMARY | 2025-06-06 16:17 | XMS_ITS | Clinical Summary ---
Author Organization [facility] Address [address] [place] [address] Care Team Providers Care Surgical Attendant Name Role Phone Josué Richards MD Primary Care Provider [phone] Allergies Active Allergy Reactions Criticality Noted Date Comments Asa-Calcium Kubz-Tfu-Xzbxyqwa 2011 Throat closing Atorvastatin Calcium 04/30/2010 myalgias [...] 08/18/2012 CKD stage 3a, GFR 45-59 ml/min (CMS/HCC V24, CMS /[facility] V28) 04/07/2010 Hyperlipidemia 04/07/2010 Overview (09/18/2024): Lipitor caused muscle weakness, as did other statins Fibromyalgia 03/21/2010 Overview (09/18/2024): [facility] (Dr [place]) Hypertension 03/21/2010 Obesity (BMI 30.0-34.9) 03/21/2010 Immunizations Immunization Administration Dates Next Due Td Tetanus diptheria (Tdvax) 7yo and older 09/21 Tdap Tetanus diptheria acell ular pertussis (Boostrix; Adacel) 7yo and older 03/21/2010 Surgical History Surgery Date Site/Laterality Comments SECTION x1 PROCEDURE: [place] DELIVERY ONLY Medical History Medical History Date Comments Hypertension DX:Hypertension Hyperlipidemia DX:Hyperlipidemi a CKD (chronic kidney disease) stage 3, GFR 30-59 ml/min (CMS/HCC V24, CMS/HCC V28) DX:CKD (chroni c kidney disease) stage 3, GFR 30-59 ml/min ([facility]) Fibromyalgia DX:Fibromyalgia Anxiety DX:Anxiety Allergic [...] 66 10/02/2024 3:40 PM EST Temperature 36.6 C (97.8 F) 10/02/2024 3:40 PM EST Respiratory Rate - - Oxygen Saturation 100% [...] PCV) 1976 Zoster Vaccines (1 of 2) 1976 Medicare Annual Wellness Visit 01/14/2020 Osteoporosis Screening (Bone Density Screening) 01/14/2020 Social Influencers of Health Screening 01/14/2020 Depression Screening 08/16/2024 Hypertension/CHF/CAD Annual BMP Blood Test 09/15/2024 07/07/2021 Influenza Vaccine (#1) 2025 08/28/2015 Falls Risk Assessment 09/26/2025 09/26/2024 Cholesterol Screening (Lipid Panel) 07/07/2026 07/07/2021 Colorectal Cancer Screening: FIT-DNA (Cologuard) 11/11/2026 2023, 2023 DTaP,Tdap,and Td Vaccines (3 - Td or Tdap) 09/21/2029 09/21/2019, 03/21/2010 RSV Immunization Adult Patients (1 - 1-dose 75+ series) 2032 Colorectal Cancer Screening: Colonoscopy Discontinued 09/21/2008 Hepatitis [...] Procedure Name Priority Date/Time Associated Diagnosis Comments ANNUAL BMP BLOOD TEST Routine 07/07/2021 LIPID PANEL Routine 07/07/2021 HEPATITIS C SCREENING Routine 11/23/2013 COLONOSCOPY Routine 09/21/2008 from Last 3 Months or Most Recently Relevant to Health Maintenance Results * Annual BMP Blood Test (07/07/2021) Pathologist [facility] Annual BMP Blood Test Abstracted us Historical Provider MD HEALTH MAINTENANCE Final Result * (ABNORMAL) Lipid panel (07/07/2021) LDL/HDL Ratio 6(A) 0 - 4 Triglycerides 114 0 - 150 mg/dL Cholesterol 270(A) 0 - 200 mg/dL HDL 47 >=40 mg/dL LDL Cholesterol 201(A) 0 - 100 mg/dL Blood Venous blood specimen / Unknown Historical Provider LAB BLOOD ORDERABLES Edwina l Result * Hepatitis C Screening (11/23/2013) Hepatitis C Screening Abstracted Historical Provider HEALTH MAINTENANCE Final Result * Colonoscopy (09/21/2008) Colonoscopy No Interpretation , Abstracted Anatomical Region Laterality Modality Other Historical Provider HEALTH MAINTENANCE Final Result from Last 3 Months or Most Recently Relevant to Health Maintenance Insurance [employer] MEDICARE MEDICAID - [place] Care Teams Surgical Attendant Relationship Specialty Start Date End Date Josué Richards MD [address] [address] PCP - General Internal Medicine 09/15/24
== END 2025-06-06 12:02 | disposition home or self-care (01) ==
LOC: HO.HKAS 11:42
PROVIDERS: PCP Nurse Practitioner; Visit Provider Internal Medicine Hypertension Specialist
DX: I12.9 Hypertensive chronic kidney disease with stage 1 through stage 4 chronic kidney disease, or unspecified chronic kidney disease (principal); N18.9 Chronic kidney disease, unspecified
CPT/HCPCS: 99214

== ENCOUNTER → 2025-06-06 11:41 | Outpatient (BNVA) | payer MEDICARE, MEDICAID, SELFPAY | PROVIDERS: PCP Nurse Practitioner; Visit Provider Internal Medicine Hypertension Specialist | DX: I12.9 Hypertensive chronic kidney disease with stage 1 through stage 4 chronic kidney disease, or unspecified chronic kidney disease (principal); N18.9 Chronic kidney disease, unspecified | CPT/HCPCS: 99212 ==

== ENCOUNTER 2025-07-09 12:54 | Outpatient (REF) | payer MEDICARE, MEDICAID, SELFPAY ==
[2025-07-09 18:37] LABS: Hematocrit 38.2 % (37.0-47.0); Hemoglobin 12.0 g/dl (12.0-16.0); Imm Gran Abs Auto 0.01 X10*3/uL (0.00-0.03); Imm Gran Pct Auto 0.2 % (0.0-0.4); Lymphocytes Absolute Auto 1.9 X10*3/uL (1.2-4.9); Mean Corpuscular HGB Conc 31.4 g/dl (31.0-35.0); Mean Corpuscular Hemoglobin 27.0 pg (27.0-33.0); Mean Corpuscular Volume 86.0 fL (80.0-98.0); NRBC Abs Auto 0.000 X10*3/uL (0.0-0.012); NRBC Pct Auto 0.0 /100WBC (0.0-0.2); Platelet Count 224 X10*3/uL (160-400); Red Blood Count 4.44 X10*6/uL (4.20-5.50); White Blood Count 5.1 X10*3/uL (4.8-10.8)
[2025-07-09 18:47] LABS: Appearance Urine Clear; Glucose Urine UA Negative (Negative); PH 6.0 (5.0-9.0); Specific Gravity - Urine 1.020 (1.005-1.025); UMIC TRIGGER UACC YES
--- OUTSIDE RECORDS SUMMARY | 2025-07-09 18:50 | XMS_ITS | Clinical Summary ---
Author Organization [facility] Address [address] [place] [address] Care Team Providers Care Administrator Pesticide Name Role Phone Josué Richards MD Primary Care Provider [phone] Allergies Active Allergy Reactions Criticality Noted Date Comments Asa-Calcium Yrzm-Vtg-Yejvywtf 2011 Throat closing Atorvastatin Calcium 04/30/2010 myalgias [...] 3a, GFR 45-59 ml/min (CMS/HCC V24, CMS /[facility] V28) 04/07/2010 Hyperlipidemia 04/07/2010 Overview (09/18/2024): Lipitor [...] Surgery Date Site/Laterality Comments SECTION x1 PROCEDURE: [place] DELIVERY ONLY Medical History Medical History Date Comments Hypertension DX:Hypertension Hyperlipidemia DX:Hyperlipidemi a CKD (chronic kidney disease) stage 3, GFR 30-59 ml/min (CMS/HCC V24, CMS/HCC V28) DX:CKD (chroni c kidney disease) stage 3, GFR 30-59 ml/min ([facility]) Fibromyalgia DX:Fibromyalgia Anxiety DX:Anxiety Allergic rhinitis DX:Allergic [...] * Annual BMP Blood Test (07/07/2021) Pathologist [facility] Annual BMP Blood Test Abstracted us Historical [...] HEALTHCARE MEDICARE MEDICAID - [place] Care Teams Administrator Pesticide Relationship Specialty Start Date End Date Josué Richards MD [address] [address] PCP - General Internal Medicine 09/15/24
[2025-07-09 19:13] LABS: Alanine Aminotransferase 20 U/L (0-31); Albumin Level 4.5 g/dL (3.5-5.0); Alkaline Phosphatase 133 U/L (39-117); Anion Gap 11 (12-20); Aspartate Amino Transferase 27 U/L (5-31); Blood Urea Nitrogen 17 mg/dL (9-16); Calcium 9.6 mg/dL (8.4-10.2); Carbon Dioxide 25 mmol/L (22-29); Chloride 110 mmol/L (96-108); Cholesterol 207 mg/dL (<200); Estimated Glomerular Filt Rate 36; HDL Cholesterol 46 mg/dL (>40); Magnesium 2.4 mg/dL (1.6-2.6); Potassium 4.2 mmol/L (3.3-5.1); Sodium 142 mmol/L (135-145); Total Protein 8.1 g/dL (6.5-8.0); Triglycerides 87 mg/dL (<150)
[2025-07-09 19:19] LABS: MANUAL DIFF FLAG NO
[2025-07-09 19:23] LABS: Folate 10.0 ng/mL (> or = 4.0); Vitamin B12 923 pg/mL (200-900)
[2025-07-10 04:37] LABS: Syphilis Screen Nonreactive (Nonreactive)
[2025-07-10 05:21] LABS: Hemoglobin A1C 75.4234 umol/L
[2025-07-10 05:27] LABS: HBS Num1 1.68 mIU/mL (0-7.99); HBsAGNum1 0.43 S/CO (0.00-0.99); HIV Num 1 0.08 S/CO (0.00-0.99); Hepatitis B Surface Antigen Negative (Negative); ~HepC Num1 0.11 S/CO (0.00-0.79); ~Hepatitis B Surface Antibody NONREACTIVE (Nonreactive); ~Hepatitis C Antibody Nonreactive (Nonreactive)
[2025-07-15 15:09] LABS: VITAMIN D (1,25 OH) D3 70 pg/mL; Vit D (1,25-Dihydroxy) Total 70 pg/mL (18-72); Vitamin D (1,25 OH) D2 <8 pg/mL
== END 2025-07-09 12:55 | disposition home or self-care (01) ==
LOC: HO.HKASLDS 12:54
PROVIDERS: PCP Nurse Practitioner; Visit Provider Student in an Organized Health Care Education/Training Program
DX: Z76.89 Persons encountering health services in other specified circumstances (principal); I25.10 Atherosclerotic heart disease of native coronary artery without angina pectoris; I21.4 Non-ST elevation (NSTEMI) myocardial infarction; I12.9 Hypertensive chronic kidney disease with stage 1 through stage 4 chronic kidney disease, or unspecified chronic kidney disease; N18.30 Chronic kidney disease, stage 3 unspecified; D63.1 Anemia in chronic kidney disease; I99.9 Unspecified disorder of circulatory system; G45.0 Vertebro-basilar artery syndrome; I65.29 Occlusion and stenosis of unspecified carotid artery; E78.5 Hyperlipidemia, unspecified; T78.40XA Allergy, unspecified, initial encounter; Z86.73 Personal history of transient ischemic attack (TIA), and cerebral infarction without residual deficits; Z79.82 Long term (current) use of aspirin; Z79.899 Other long term (current) drug therapy
CPT/HCPCS: 36415; 80053; 80061; 81001; 81003; 82607; 82652; 82746; 83036; 83735; 84443; 85025; 86706; 86780; 86803; 87340; 87389; 99202

== ENCOUNTER → 2025-07-25 14:38 | Outpatient (BNVA) | payer MEDICARE, MEDICAID, SELFPAY | PROVIDERS: PCP Nurse Practitioner; Visit Provider Student in an Organized Health Care Education/Training Program | DX: Z71.3 Dietary counseling and surveillance (principal) | CPT/HCPCS: 99211 ==